=== PATIENT | male | born 1985 | race Caucasian/White ===

== ENCOUNTER 2020-01-03 09:02 | Emergency (ER) | payer OTHER ==
[2020-01-03 10:01] LABS: Absolute Lymphocytes (CBC) 2.3 K/uL (0.7-4.9); Basophils % 0.8 % (0-1.3); Hematocrit 44.5 % (39.6-49.0); Lymphocytes % 25.6 % (15.3-44.8); MPV 8.8 fL (7.6-11.3); RBC Red Blood Cell Count 5.07 M/uL (4.33-5.43)
[2020-01-03 10:05] LABS: Protime INR 1.01
[2020-01-03 10:28] LABS: ALT/SGPT 55 U/L (12-78); AST/SGOT 32 U/L (15-37); Albumin 4.1 g/dL (3.4-5.0); Alkaline Phosphatase 117 U/L (45-117); BUN Blood Urea Nitrogen 13 mg/dL (7-18); Bicarbonate 27 mmol/L (21-32); Bilirubin Direct 0.1 mg/dL (0-0.2); Bilirubin Total 0.5 mg/dL (0.2-1.0); Glucose Level 98 mg/dL (74-106); Magnesium 2.3 mg/dL (1.8-2.4); NT PRO-BNP 15 pg/mL (<125); Potassium 4.2 mmol/L (3.5-5.1); Sodium Level 140 mmol/L (136-145); Troponin (Emerg Dept Use Only) < 0.02 ng/mL (0.0-0.045)
--- NOTE | 2020-01-03 10:58 | RAD REPORT ---
EXAM DESCRIPTION: RAD - Chest Single View - 01/03/2020 10:14 am CLINICAL HISTORY: DYSPNEA TECHNIQUE: AP portable chest image was obtained 01/03/2020 10:14 am . FINDINGS: Lungs are clear. Heart and vasculature are normal. No measurable pleural effusion and no p neumothorax. No acute bony abnormality seen. No acute aortic findings suspected. IMPRESSION: No acute cardiopulmonary process.
--- NOTE | 2020-01-03 11:35 | ER ---
Nurse's Notes [facility] Name: Mak Rogers Age: 34 yrs Sex: Male : 1985 Arrival Date: 01/03/2020 Time: 09:05 Bed 13 Private MD: Diagnosis: Hypertensive Urgency Presentation: 01/02 09:23 Chief complaint: Patient states: sharp/dull left sided chest pain started at 0800 iw today, lasted about 5 min, then left arm went numb, also felt like he had a lump in his throat , hx of high blood pressure. Coronavirus screen: Proceed with normal triage. Patient denies a cough. Patient denies shortness of breath or difficulty breathing. Patient denies measured and/or subjective temperature greater than 100.4F prior to today's visit. Patient denies travel on a cruise ship or to a country the [facility] currently lists as an affected area. Patient denies contact with known and/or suspected case of COVID-19. Ebola Screen: Patient negative for fever greater than or equal to 101.5 degrees Fahrenheit, and additional compatible Ebola Virus Disease symptoms Patient denies exposure to infectious person. Patient denies travel to an Ebola-affected area in the 21 days before illness onset. No symptoms or risks identified at this time. Initial Sepsis Screen: Does the patient meet any 2 criteria? No. Patient's initial sepsis screen is negative. Does the patient have a suspected source of infection? No. Patient's initial sepsis screen is negative. Risk Assessment: Do you want to hurt yourself or someone else? Patient reports no desire to harm self or others. Onset of symptoms was January 03, 2020. 09:23 Method Of Arrival: Ambulatory iw 09:23 Acuity: CAMERON 3 iw Triage Assessment: 11:00 General: Behavior is calm. iw Historical: - Allergies: 10:02 PENICILLINS; iw - Home Meds: 10:02 metoprolol tartrate 25 mg Oral tab 1 tab 2 times per day [Active]; iw - PMHx: 10:02 Hypertension; iw - PSHx: 10:02 Appendectomy; iw - Immunization history:: Adult Immunizations. - Social history:: Smoking status: Patient denies any tobacco usage or history of. Screenin:30 Abuse screen: Denies threats or abuse. Denies injuries from another. Nutritional iw screening: No deficits noted. Tuberculosis screening: No symptoms or risk factors identified. Fall Risk None identified. Assessment: 09:30 General: Appears in no apparent distress. comfortable. Pain: Complains of pain in iw anterior aspect of left upper chest and left breast Pain radiates to left arm Pain began 1 hour ago. Is intermittent. Neuro: Level of Consciousness is awake, alert, obeys commands, Oriented to person, place, Moves all extremities. Full function. Neuro: Reports numbness in left arm. Cardiovascular: Patient's skin is warm and dry. Rhythm is sinus rhythm. Respiratory: Respiratory effort is even, unlabored, Respiratory pattern is regular. Derm: Skin is intact, is healthy with good turgor. Musculoskeletal: Range of motion: intact in all extremities. 10:31 Reassessment: Patient appears in no apparent distress at this time. Patient and/or iw family updated on plan of care and expected duration. Pain level reassessed. Patient is alert, oriented x 3, equal unlabored respirations, skin warm/dry/pink. Vital Signs: 10:00 BP 142 / 99; Pulse 76; Resp 16; Temp 98.2; Pulse Ox 100% on R/A; Weight 93.44 kg; iw Height 5 ft. 10 in. (177.80 cm); Pain 6/10; 10:26 BP 122 / 86; Pulse 68; Resp 16; Pulse Ox 98% on R/A; Pain 3/10; iw 10:00 Body Mass Index 29.56 (93.44 kg, 177.80 cm) iw ED Course: 09:05 Patient arrived in ED. mr 09:06 Parrish Peña PA is PHCP. jr8 09:06 Mathew Helm MD is Attending Physician. jr8 09:06 Winnie Moran, ARLINE is Primary Nurse. iw 09:25 Triage completed. iw 10:00 Arm band placed on. iw 10:12 Initial lab(s) drawn, by ga, sent to lab. Inserted saline lock: 20 gauge in right 5 antecubital area, using aseptic technique. Blood collected. 10:13 X-ray completed. Portable x-ray completed in exam room. Patient tolerated procedure ml well. 10:13 Patient has correct armband on for positive identification. Bed in low position. Call [facility] light in reach. monitoring tech on. Pulse ox on. NIBP on. 10:14 XRAY Chest (1 view) In Process Unspecified. EDDE 10:14 Basic Metabolic Panel Sent. 5 10:14 LFT's Sent. 5 10:14 Magnesium Sent. 5 10:14 NT PRO-BNP Sent. 5 10:14 Troponin (emerg Dept Use Only) Sent. 5 10:26 Patient maintains SpO2 saturation greater than 95% on room air. iw 11:42 Repeat lab(s) drawn. by ga, sent to lab. [facility] 11:58 No provider procedures requiring assistance completed. IV discontinued, intact, No iw redness/swelling at site. Pressure dressing applied. Administered Medications: No medications were administered Outcome: 11:34 Discharge ordered by MD. oro 11:58 Discharged to home ambulatory. iw 11:58 Condition: good 11:58 Discharge instructions given to patient, Instructed on discharge instructions, follow up and referral plans. Demonstrated understanding of instructions, follow-up care. 11:59 Patient left the ED. Signatures: Dispatcher [employer] Mei Mays Irene, RN RN Manuela Palencia Josh, PA PA Lela Cabrera [facility]
--- NOTE | 2020-01-03 11:35 | EDPHYS ---
Physician Documentation [facility] Name: Mak Rogers Age: 34 yrs Sex: Male : 1985 Arrival Date: 01/03/2020 Time: 09:05 Bed 13 Private MD: ED Physician Mathew Helm HPI: 01/02 09:27 This 34 yrs old Male presents to ER via Ambulatory with complaints of Chest jr8 Pain, Arm Problem. 09:27 The patient or guardian reports chest pain that is located primarily in the substernal jr8 area. The pain radiates to the left arm, jaw. Associated signs and symptoms: The patient has no apparent associated signs or symptoms. The chest pain is described as a heaviness, a pressure. Duration: The patient or guardian reports a single episode, that lasted 1 hour(s). Modifying factors: The symptoms are alleviated by nothing. the symptoms are aggravated by nothing. Severity of pain: At its worst the pain was moderate in the emergency department the pain has improved moderately. The patient has not experienced similar symptoms in the past. The patient has not recently seen a physician. Patient stated that he will get palpitations from time to time when his blood pressure spikes. Today had chest pressure with radiation to arm and jaw which is abnormal for him. Historical: - Allergies: 10:02 PENICILLINS; iw - Home Meds: 10:02 metoprolol tartrate 25 mg Oral tab 1 tab 2 times per day [Active]; iw - PMHx: 10:02 Hypertension; iw - PSHx: 10:02 Appendectomy; iw - Immunization history:: Adult Immunizations. - Social history:: Smoking status: Patient denies any tobacco usage or history of. ROS: 09:27 Eyes: Negative for injury, pain, redness, and discharge, ENT: Negative for injury, jr8 pain, and discharge, Neck: Negative for injury, pain, and swelling, Respiratory: Negative for shortness of breath, cough, wheezing, and pleuritic chest pain, Abdomen/GI: Negative for abdominal pain, nausea, vomiting, diarrhea, and constipation, Back: Negative for injury and pain, MS/Extremity: Negative for injury and deformity, Skin: Negative for injury, rash, and discoloration, Neuro: Negative for headache, weakness, numbness, tingling, and seizure. 09:27 Cardiovascular: Positive for chest pain, Negative for edema, orthopnea, palpitations, paroxysmal nocturnal dyspnea. Exam: 09:27 Eyes: Pupils equal round and reactive to light, extra-ocular motions intact. Lids and jr8 lashes normal. Conjunctiva and sclera are non-icteric and not injected. Cornea within normal limits. Periorbital areas with no swelling, redness, or edema. ENT: Nares patent. No nasal discharge, no septal abnormalities noted. Tympanic membranes are normal and external auditory canals are clear. Oropharynx with no redness, swelling, or masses, exudates, or evidence of obstruction, uvula midline. Mucous membranes moist. Neck: Trachea midline, no thyromegaly or masses palpated, and no cervical lymphadenopathy. Supple, full range of motion without nuchal rigidity, or vertebral point tenderness. No Meningismus. Cardiovascular: Regular rate and rhythm with a normal S1 and S2. No gallops, murmurs, or rubs. Normal PMI, no JVD. No pulse deficits. Respiratory: Lungs have equal breath sounds bilaterally, clear to auscultation and percussion. No rales, rhonchi or wheezes noted. No increased work of breathing, no retractions or nasal flaring. Abdomen/GI: Soft, non-tender, with normal bowel sounds. No distension or tympany. No guarding or rebound. No evidence of tenderness throughout. Back: No spinal tenderness. No costovertebral tenderness. Full range of motion. Skin: Warm, dry with normal turgor. Normal color with no rashes, no lesions, and no evidence of cellulitis. MS/ Extremity: Pulses equal, no cyanosis. Neurovascular intact. Full, normal range of motion. Neuro: Awake and alert, GCS 15, oriented to person, place, time, and situation. Cranial nerves II-XII grossly intact. Motor strength 5/5 in all extremities. Sensory grossly intact. Cerebellar exam normal. Normal gait. 10:36 ECG was reviewed by the Attending Physician. [facility] Vital Signs: 10:00 BP 142 / 99; Pulse 76; Resp 16; Temp 98.2; Pulse Ox 100% on R/A; Weight 93.44 kg; iw Height 5 ft. 10 in. (177.80 cm); Pain 6/10; 10:26 BP 122 / 86; Pulse 68; Resp 16; Pulse Ox 98% on R/A; Pain 3/10; iw 10:00 Body Mass Index 29.56 (93.44 kg, 177.80 cm) iw MDM: 09:10 Patient medically screened. niru 11:33 Data reviewed: vital signs, nurses notes, lab test result(s), EKG, radiologic studies, jr8 plain films. Data interpreted: Pulse oximetry: on room air is 98 %. Interpretation: normal. Counseling: I had a detailed discussion with the patient and/or guardian regarding: the historical points, exam findings, and any diagnostic results supporting the discharge/admit diagnosis, lab results, radiology results, the need for outpatient follow up, a family practitioner, to return to the emergency department if symptoms worsen or persist or if there are any questions or concerns that arise at home. Response to treatment: the patient's symptoms have resolved after treatment. 11:34 ED course: Patient resolved after BP normalized. Most likely HTN urgency that caused jr8 symptoms. ECG and troponin x 2 normal. Will having him f/u with PCP. If worse knows to come back . 01/02 09:24 Order name: Basic Metabolic Panel; Complete Time: 10:01/02 09:24 Order name: CBC with Diff; Complete Time: 10:01/02 09:24 Order name: LFT's; Complete Time: 01/02 09:24 Order name: Magnesium; Complete Time: :01/02 09:24 Order name: NT PRO-BNP; Complete Time: :01/02 09:24 Order name: PT-INR; Complete Time: 10:01/02 09:24 Order name: Troponin (emerg Dept Use Only); Complete Time: 10:01/02 09:24 Order name: XRAY Chest (1 view); Complete Time: 11:01/02 09:24 Order name: Cardiac monitoring; Complete Time: 10:01/02 09:24 Order name: EKG - Nurse/Tech; Complete Time: 10:01/02 09:24 Order name: IV Saline Lock; Complete Time: 10:01/02 09:24 Order name: Labs collected and sent; Complete Time: 10:01/02 09:24 Order name: O2 Per Protocol; Complete Time: 10:05 8 01/02 10:53 Order name: Troponin (emerg Dept Use Only); Complete Time: 11:33 8 01/02 09:24 Order name: O2 Sat Monitoring; Complete Time: 10:06 EC:36 Rate is 78 beats/min. Rhythm is regular, Sinus Rhythm. QRS [place] is Normal. MT interval jr8 is normal at 154 msec. QRS interval is normal at 82 msec. QT interval is normal at 424 msec. No Q waves. T waves are Normal. No ST changes noted. Clinical impression: Normal ECG. Interpreted by me. Reviewed by me. Administered Medications: No medications were administered Disposition: 13:09 Co-signature as Attending Physician, Mathew Helm MD I agree with the assessment and niru plan of care. Disposition: 01/03/20 11:34 Discharged to Home. Impression: Hypertensive Urgency. - Condition is Stable. - Discharge Instructions: Hypertension. - Work release form, Medication Reconciliation Form, Thank You Letter, Antibiotic Education, Prescription Opioid Use form. - Follow up: Private Physician; When: 2 - 3 days; Reason: Recheck today's complaints, Continuance of care, Re-evaluation by your physician. - Problem is new. - Symptoms are resolved. Signatures: Dispatcher [employer] EDIA Mathew Helm MD MD cha Williams, Irene RN RN Parrish Vaughn PA PA jr8 Corrections: (The following items were deleted from the chart) 11:59 11:34 01/03/2020 11:34 Discharged to Home. Impression: Hypertensive Urgency. Condition iw is Stable. Forms are Medication Reconciliation Form, Thank You Letter, Antibiotic Education, Prescription Opioid Use. Follow up: Private Physician; When: 2 - 3 days; Reason: Recheck today's complaints, Continuance of care, Re-evaluation by your physician. Problem is new. Symptoms are resolved. jr8
[2020-01-03 12:04] VITALS: TEMP 98.2
[2020-01-03 12:06] VITALS: BP 122/86; O2SAT 98
== END 2020-01-03 11:59 | disposition home or self-care (01) ==
LOC: ER 09:02
DX: I16.0 Hypertensive urgency (principal); Z88.0 Allergy status to penicillin
CPT/HCPCS: 36415; 71045; 80048; 80076; 83735; 83880; 84484; 85025; 85610; 93005; 99285

== ENCOUNTER 2021-06-21 19:25 | Emergency (ER) | payer OTHER ==
--- OUTSIDE RECORDS SUMMARY | 2021-06-21 19:30 | XMS REPORT | Continuity of Care Document ---
:[address] [facility] t Address [address] [place] [address] Care Team Providers Name Role Phone EUGENIE Primary Care Physician Unavailable GEOFFREY Attending Clinician Unavailable Geoffrey PERRY Attending Clinician Singer REECE Attending Clinician Lab, Fam Pob I Attending Clinician Unavailable Anene [employer] Attending Clinician DELTANE Attending Clinician Unavailable TIESHA Attending Clinician Unavailable Only, Test Attending Clinician Unavailable Teisha PERRY Attending Clinician Doctor Unassigned, Name Attending Clinician Unavailable Pcp, Does Not Have A Attending Clinician ANUJ, A Attending Clinician Unavailable Yanelis Abraham Attending Clinician Payers Payer Name Policy Type Policy Number Effective Date Expiration Date S [facility] [id number] 2019 PPO/POS 00:00:00 Problems Condition Condition Condition Status Onset Resolution Last Treating Co mments Source Name Details Category Date Date Treatment Clinician Date No known No known Disease Unive rs active active ity of problems problems [facility] Allergies, Adverse Reactions, Alerts Allergy Allergy Status Severity Reaction(s) Onset Inactive Treating Comm ents Source Name Type Date Date Clinician PENICILL DRUG Active SOB Univers IN INGREDI 7-27 ity of 00:00: [place] [facility] Penicill Propensi Active Shortness of Univers in ty to Breath 7-27 ity of adverse 00:00: [place] reaction [facility] MUSHROOM DRUG Active Swelling Univer s INGREDI 4-07 ity of 00:00: [place] 00 Medical Branch Mushroom Propensi Active Swelling Throat Univ ers ty to 07 swelling ity of adverse 00:00: [place] reaction 00 Medical s Branch NO KNOWN Drug Active Univers ALLERGIE Class ity of S [facility] Social History Social Habit Start Date Stop Date Quantity Comments Source Exposure to Not sure [facility] SARS-CoV-2 (event) Medica l Branch Sex Ass[birth year] At [birth year] [facility] 00:00:00 00:00:00 Medical [place] Smoking Status Start Date Stop Date Source Unknown if ever smoked [facility] Medications Ordered Filled Start Stop Current Ordering Indication Dosage Frequency Signature Comments Components Source Medication Medication Date Date Medication? Clinician (SIG) Name Name NaCl 0.9% 2020-07- No 1000mL at 999 Uni vers (NS) bolus -24 11-24 mL/hr, ity of infusion 05:00: 04:51 1,000 mL, [place] 1,000 mL 00 :00 IV Medical Infusion, Branch ONCE, 1 dose, On Wed06/17/21 at 2300, ALBARO ketorolac 2020- No 15mg 15 mg, Unive rs (TORADOL) 02-18 Slow IV ity of injection 11:00: 10:59 Push, Q6H, [place] 15 mg 00 :00 4 doses, Medical First dose Branch on Wed02/18/21 at 0600, Last dose on Wed02/19/21 at 0000, Routine NaCl 0.9% 2020- No 1000mL at 999 Uni vers (NS) bolus 02-18 mL/hr, ity of infusion 08:45: 09:15 1,000 mL, [place] 1,000 mL 00 :00 IV Medical Piggyback, Branch ONCE, 1 dose, Wed02/18/21 at 0345, STAT ondansetron 2020- No 4mg 4 mg, Slow Univers (ZOFRAN 02-18 IV Push, ity of (PF)) 07:45: 08:06 ONCE, 1 [place] injection 4 00 :00 dose, Tue Med ical mg 02/18/21 at Branch 0245, Routine famotidine 2020- No 20mg 20 mg, Univ ers (PEPCID 10-30 Slow IV ity of (PF)) 13:15: 12:21 Push, [place] injection 00 :00 ONCE, 1 Medical 20 mg dose, Wed Branch 10/30/20 at 0815, ALBARO methylpredn 2020- No 125mg 125 mg, IV Univers isolone sod 10-30 Piggyback, i ty of succ 13:15: 12:21 ONCE, 1 [place] (SOLU-MEDRO 00 :00 dose, Wed Med ical L) 10/30/20 at Branch injection 0815, STAT 125 mg predniSONE Yes [id number] 20mg Take 1 Univers 20 mg - tablet by ity of tablet 00:00: mouth [place] 00 daily. [facility] predniSONE Yes [id number] 20mg Take 1 Univers 20 mg - tablet by ity of tablet 00:00: mouth [place] 00 daily. [facility] predniSONE Yes [id number] 20mg Take 1 Univers 20 mg - tablet by ity of tablet 00:00: mouth [place] 00 daily. [facility] Branch EPINEPHrine 2020- No [id number] .3mg 0.[address] [facility] (EPIPEN) 10-30 Intramuscu ity of 0.3 mg/0.3 00:00: 04:59 lar route [place] mL 00 :00 once now Medical injection for 1 Branch dose. Vital Signs Vital Name Observation Time Observation Value Comments Source Systolic blood 2021-06-18 06:00:00 133 [facility] Diastolic blood 2021-06-18 06:00:00 91 mm[Hg] [facility] [place] Heart rate 2021-06-18 06:00:00 69 /min [facility] Respiratory rate 2021-06-18 06:00:00 15 /min [facility] Oxygen saturation in 2021-06-18 06:00:00 98 /min [facility] Arterial blood by [facility] Pulse oximetry [place] Body temperature 2021-06-18 03:51:00 37 Carline [facility] Body height 2021-06-18 03:51:00 177.8 cm [facility] Body weight 2021-06-18 03:51:00 99.791 kg [facility] ty [facility] [place] Medical [facility] BMI 2021-06-18 03:51:00 31.57 kg/m2 Universi ty of [facility] Branch Systolic blood 2021-02-18 10:01:00 143 mm[Hg] Univer sity of pressure [facility] Diastolic blood 2021-02-18 10:01:00 98 mm[Hg] Unive rsity of pressure [facility] Heart rate 2021-02-18 10:01:00 67 /min Universi ty of [facility] Respiratory rate 2021-02-18 10:01:00 18 /min Univ ersity of [facility] Oxygen saturation in 2021-02-18 10:01:00 98 /min University of Arterial blood by [facility] Pulse oximetry Branch Body temperature 2021-02-18 07:25:00 36.5 Carline [facility] ersity of [facility] Body height 2021-02-18 07:25:00 177.8 cm Universi ty of [facility] Body weight 2021-02-18 07:25:00 95.255 kg Universi ty of [facility] BMI 2021-02-18 07:25:00 30.13 kg/m2 Universi ty of [facility] Branch Systolic blood 2020-10-30 14:10:00 140 mm[Hg] Univer sity of pressure [facility] Diastolic blood 2020-10-30 14:10:00 77 mm[Hg] Unive rsity of pressure [facility] Heart rate 2020-10-30 14:10:00 98 /min Universi ty of [facility] Respiratory rate 2020-10-30 14:10:00 18 /min Univ ersity of [facility] Oxygen saturation in 2020-10-30 14:10:00 98 /min University of Arterial blood by [facility] Pulse oximetry Branch Body temperature 2020-10-30 12:11:00 36.61 Carline [facility] ersity of [facility] Body weight 2020-10-30 12:11:00 95.255 kg Universi ty [facility] Procedures Procedure Date / Time Performing Clinician Source Performed TROPONIN I 2021-06-18 05:48:00 Magdi Hale o f [facility] URINE DRUG (IMMUNOASSAY) 2021-06-18 04:53:00 Hale, Magdi [facility] DRUG Medical [facility] [address] SCREEN NOTICE OF PRIVACY 2021-06-18 04:50:48 Doctor Unassigned, No Univ [facility] [place] PRACTICES Name Medical Branch CONSENT/REFUSAL FOR 2021-06-18 04:49:09 [facility] Unassigned, No [facility] Name Medical Branch XR CHEST 1 VW 2021-06-18 04:21:41 Magdi Hale [facility] LIPASE 2021-06-18 04:02:00 Magdi Hale [facility] TROPONIN I 2021-06-18 04:02:00 Magdi Hale [facility] COMP. METABOLIC PANEL 2021-06-18 04:02:00 Magdi Hale [facility] ([id number]) Medical [place] CBC WITH DIFF 2021-06-18 04:02:00 Magdi Hale [facility] PROTHROMBIN TIME / INR 2021-06-18 04:02:00 Magdi Hale [facility] D-DIMER 2021-06-18 04:02:00 Magdi Hale [facility] ACTIVATED PARTIAL 2021-06-18 04:02:00 [facility] TH[facility]PL[facility] ALYSON [facility] N-TERMINAL PRO-BNP 2021-06-18 04:02:00 Magdi Hale [facility] URINALYSIS 2021-02-18 08:52:[facility] 2021-02-18 07:59:20 Gaudencio Day [facility] CONTRAST Medical Branch COMP. METABOLIC PANEL 2021-02-18 07:53:00 Gaudencio Day [facility] ([id number]) Medical Branch CBC WITH DIFF 2021-02-18 07:53:00 Singer [facility] COVID-19 (ID NOW RAPID 2021-02-18 07:52:00 Gaudencio Day [facility] TESTING) Medical Branch CONSENT/REFUSAL FOR 2021-02-18 07:21:29 Doctor Unassigned, No Un [facility] [place] DIAGNOSIS AND TREATMENT Name Medical Branch NOTICE OF PRIVACY 2020-10-30 12:02:54 Doctor Unassigned, No [facility] PRACTICES Name Medical Branch CONSENT/REFUSAL FOR 2020-10-30 12:02:42 Doctor Un[facility]igned, No [facility] Name Medical Branch ASSIGNMENT OF BENEFITS 2020-07-31 15:02:00 Doctor Unassigned, No [facility] Name Medical Branch Encounters Start End Encounter Admission Attending Care Care Encounter Source Date/Time Date/Time Type Type Clinicians Facility Department ID 2021-05-26 Emergency [facility] [id number] Univers 10:59:02 ity [facility] 2021-05-25 Emergency [facility] [id number] Univers 11:12:02 ity [facility] 2021-06-17 2021-06-18 Emergency [id number] Univers 21:43:00 01:00:00 MAGDI darancho [facility] 2021-06-17 2021-06-18 [facility] [id number] Univers 21:43:00 01:00:00 Magdi SAMANIEGO [id number] i ty of [facility] 4.2.7.2.686 [facility] [id number] [address] 2021-02-18 2021-02-18 [facility] [id number] Univers 02:38:00 05:10:00 Gaudencio Samaniego 350.1.13.10 i ty of [place] 4.2.7.2.686 [facility] [id number] [address] 2020-10-30 2020-10-30 [facility] [id number] Univers 07:05:00 10:02:00 Magdi Aden 350.1.13.10 i ty of [place] 4.2.7.2.686 [facility] [id number] [address] 2020-08-16 2020-08-16 Laboratory Lab, Adc Fam Pob I [facility] 1.2. [id number] [id number] Univers 11:18:19 11:38:19 Only Lyndsey Marley 350.1.13.10 ity of [place] 4.2.7.2.686 [place] as Professio [id number] La dical nal [address] Branch [address] 2020-08-16 2020-08-16 Outpatient R [facility] [id number] Univers 11:20:00 11:20:00 [id number] ity of [facility] 2020-08-16 2020-08-16 [facility] [id number] Univers 11:20:00 11:20:00 LYNDSEY ity [facility] 2020-07-31 2020-07-31 Outpatient R [facility] [id number] Univers 09:30:00 09:30:00 [id number] ity [facility] 2020-07-31 2020-07-31 [facility] [id number] Univers 09:30:00 09:30:00 LUNA frazier [facility] 2020-07-31 2020-07-31 Laboratory Only, Adc Test [facility] [id number] Univers 08:58:06 09:13:06 Only Luna Mahan 350.1.13.10 ity of [place] 4.2.7.2.686 [place] [facility] [id number] [facility] [address] [place] 2020-07-31 2020-07-31 Orders Doctor DEMARCO [id number] Univers 00:00:00 00:00:00 Only Unassigned, JOB 350.1.13.10 ity of [place] [facility] 4.2.7.2.686 [place]igo as [id number] [facility] [address] [place] 2020-04-19 2020-04-19 Telephone Pcp, DEMARCO [id number] Univers 00:00:00 00:00:00 Patient JOB 350.1.13.10 it y of Does Not HOSPITAL 4[place]2.7.2.686 [place] Have A [id number] [facility] 019 [place] 2020-04-18 2020-04-18 Outpatient R [facility] [id number] Univers 09:00:00 09:00:00 [id number] ity [facility] 2020-04-18 2020-04-18 Outpatient [facility] [id number] Univers 09:00:00 09:00:00 LYNDSEY itrancho [facility] 2020-04-18 2020-04-18 Laboratory Lab, [facility] 1.2. [id number] Univers 08:06:23 08:26:23 Only Lyndsey [facility] 350.1.13.10 ity of [place] 4.2.7.2.686 [place] Professio [id number] [address] Office [facility] 2020-03-06 2020-03-06 Outpatient [facility] [id number] Univers 14:00:00 14:00:00 VIKTORIYA itrancho [facility] 2020-03-06 2020-03-06 Laboratory Lab, [facility] 1.2. [id number] [id number] Univers 13:44:04 13:58:31 Only Viktoriya [facility] 350.1.13.10 ity of [place] 4.2.7.2.686 [place] Professio [id number] [address] Office [facility] 2020-03-06 2020-03-06 Letter Doctor DEMARCO [id number] Univers 00:00:00 00:00:00 (Out) Unassigned, JOB 350.1.13.10 ity of [place] [facility] 4.2.7.2.686 [place] as [id number] [address] Results Test Description Test Time Test Comments Results Result Comments Source TROPONIN I 2021-06-18 06:28:00 Test Item Value Reference Range Interpretation Comme nts TROPONIN I (test code = 0.004 ng/mL See_Comment [Au tomated message] The [id number]) system which ge nerated this result tra nsmitted reference range : <=0.034. The reference r ray was not used to int erpret this result as normal/abnormal . FLAVIO (test code = FLAVIO) Reference (Normal) Range (defined by the 99th percentile reference limit): <= 0.034 ng/mL Note: Cardiac troponin begins to rise 3-4 hours after the onset of ischemia. Repeat in 4-6 hours if the sample was drawn within 3-4 hours of the onset of the symptom and found normal. Diagnosis of myocardial injury is made with acute changes in cTn concentrations with at least one serial sample above the 99th percentile upper reference limit (URL), taken together with the patient's clinical presentation. Biotin has been reported to cause a negative bias, interpret results relative to patient's use of biotin. Lab Interpretation Normal (test code = 48543-2) [id number] 05:02:48 Test Item Value Reference Interpretation Comments Range D-DIMER (test code = <0.27 See_Comment [Autom ated [id number]) message] The system which generated this result transmitted reference range : <0.41 ?g/mL (FEU). The reference range was not used to interpret this result as normal/abnormal . FLAVIO (test code = This test may be FLAVIO) used in conjunction with a clinical pretest probability (PTP) assessment model to exclude venous thromboembolism (VTE) in patients suspected of deep venous thrombosis (DVT) and pulmonary embolism (PE) A D-Dimer value less than 0.50 ?g/ml (FEU) has a negative predicative value of 96 to 100% (95% CI)and 97 to 100% (95% CI) as an aid in the diagnosis of deep vein thrombosis (DVT) and pulmonary embolism when there is low or moderate pretest probability of PE or DVT. D-Dimer values are expressed in initial fibrinogen equivalent units (FEU)" The assay results should be used with other information, including the clinical context, in forming a diagnosis. Lab Interpretation Normal (test code = 43427-0) [facility] [id number] 04:35:43 Test Item Value Reference Interpretation Comments Range TROPONIN I (test 0.002 ng/mL See_Comment [Automated code = 6391182512) message] The system which generated this result transmitted reference range : <=0.034. The reference range was not used to interpret this result as normal/abnormal . FLAVIO (test code = Reference (Normal) FLAVIO) Range (defined by the 99th percentile reference limit): <= 0.034 ng/mL Note: Cardiac troponin begins to rise 3-4 hours after the onset of ischemia. Repeat in 4-6 hours if the sample was drawn within 3-4 hours of the onset of the symptom and found normal. Diagnosis of myocardial injury is made with acute changes in cTn concentrations with at least one serial sample above the 99th percentile upper reference limit (URL), taken together with the patient's clinical presentation. Biotin has been reported to cause a negative bias, interpret results relative to patient's use of biotin. Lab Interpretation Normal (test code = 18560-0) [facility] [id number] 04:32:40 Test Item Value Reference Range Interpretation Comments NT-proBNP (test code 23 pg/mL See_Comment [Autom ated = 7239897417) message] The system which generated this result transmitted reference range : <=125. The reference range was not used to interpret this result as normal/abnormal . FLAVIO (test code = FLAVIO) Biotin has been reported to cause a negative bias, interpret results relative to patient's use of biotin. Lab Interpretation Normal (test code = 40069-6) [facility] THRMPLAS [id number] 04:27:23 Test Item Value Reference Range Interpretation Comments APTT Patient (test See_Comment [Automat ed code = 3173-2) message] The system which generated this result transmitted reference range : 23 - 38 Seconds . The reference range was not used to interpr et this result as normal/abnormal . FLAVIO (test code = FLAVIO) The [facility] patient population mean normal value for aPTT is 30 seconds. Lab Interpretation Normal (test code = 40416-8) [facility]HROM[facility] TIME / [id number] 04:25:21 Test Item Value Reference Range Interpretation Comments PROTIME PATIENT (test See_Comment [Auto mated message] code = 5964-2) The system wh ich generated this result transmitted ref erence range: 12.0 - 1 4.7 Seconds. The re ference range was not u sed to interpret this result as normal/abnor mal. INR (test code = 6301-6) Nor mal INR <1.1; Warfarin Therap eutic range 2.0 to 3. 0 or 2.5 to 3.5, dep ending upon the indica tions. Lab Interpretation (test Normal code = 66028-3) [facility]. METABOLIC PANEL (23095)2021-06-18 04:25:01 Test Item Value Reference Range Interpretation Comments NA (test code = 138 mmol/L 135-145 7036512893) K (test code = 3.5 mmol/L 3.5-5.0 4311507760) CL (test code = 103 mmol/L 98-108 9686804287) CO2 TOTAL (test code = 26 mmol/L 23-31 4924350104) AGAP (test code = 2-16 1503133516) BUN (test code = 16 mg/dL 7-23 3831126607) GLUCOSE (test code = 130 mg/dL 70-110 H 4189518287) CREATININE (test code = 1.21 mg/dL 0.60-1.25 3843809957) TOTAL BILI (test code = 0.4 mg/dL 0.1-1.3 4933401051) CALCIUM (test code = 8.9 mg/dL 8.6-10.6 6799301448) T PROTEIN (test code = 7.2 g/dL 6.3-8.2 1833861335) ALBUMIN (test code = 4.2 g/dL 3.5-5.0 5235728554) ALK PHOS (test code = 97 U/L 34-122 5871071108) ALTv (test code = 48 U/L 5-50 1742-6) AST(SGOT) (test code = 44 U/L 13-40 H 5779975031) eGFR (test code = mL/min/1.73m2 6851255673) FLAVIO (test code = FLAVIO) Association of Glomerular Filtration Rate (GFR) and Staging of Kidney Disease* + --+ --+ ------+| GFR (mL/min/1.73 m2) ?| With Kidney Damage ?| ?Without Kidney Damage+ --------+ --------+ +| ?>90 ?| ?Stage one ?| ? Normal ?+ ---+ ---+ -------+| ?60-89 ?| ?Stage two ?| ? Decreased GFR ? + --+ --+ ------+| ?30-59 ?| ?Stage three ?| ? Stage three ? + --+ --+ ------+| ?15-29 ?| ?Stage four ? | ? Stage four ?+ ---+ ---+ -------+| ?<15 (or dialysis) ? ?| ?Stage five ? | ? Stage five ?+ ---+ ---+ -------+ *Each stage assumes the associated GFR level has been in effect for at least three months. ?Stages 1 to 5, with or without kidney disease, indicate chronic kidney disease. Notes: Determination of stages one and two (with eGFR >59mL/min/1.73 m2) requires estimation of kidney damage for at least three months as defined by structural or functional abnormalities of the kidney, manifested by either:Pathological abnormalities or Markers of kidney damage (including abnormalities in the composition of the blood or urine or abnormalities in imaging tests). Lab Interpretation Abnormal (test code = 46403-0) [facility]IPASE2021-11-24 04:24:41 Test Item Value Reference Range Interpretation Comments LIPASE (test code = 9486184779) 85 U/L 0-220 Lab Interpretation (test code = Normal 52475-4) [facility] WITH [id number] 04:11:22 Test Item Value Reference Range Interpretation Comments WBC (test code = See_Comment H [Automated 5290-2) message] The sy stem which generated this result transmitted reference range : 4.20 - 10.70 10*3/?L. The reference range was not used to interpret this result as normal/abnormal . RBC (test code = See_Comment [Automated 765-8) message] The sy stem which generated this result transmitted reference range : 4.26 - 5.52 10*6/?L. The reference range was not used to interpret this result as normal/abnormal . HGB (test code = 13.8 g/dL 12.2-16.4 718-7) HCT (test code = 39.7 % 38.4-49.3 4544-3) MCV (test code = 86.3 fL 81.7-95.6 787-2) MCH (test code = 30.0 pg 26.1-32.7 785-6) MCHC (test code = 34.8 g/dL 31.2-35.0 786-4) RDW-SD (test code = 40.5 fL 38.5-51.6 29937-0) RDW-CV (test code = 12.8 % 12.1-15.4 788-0) PLT (test code = See_Comment [Automated 397-3) message] The sy stem which generated this result transmitted reference range : 150 - 328 10*3/ ?L. The reference r ray was not used to interpret this result as normal/abnormal . MPV (test code = 10.0 fL 9.8-13.0 09272-5) NRBC/100 WBC (test See_Comment [Automat ed code = 9863701068) message] The system which generated this result transmitted reference range : 0.0 - 10.0 /100 WBCs. The refer ence range was not u sed to interpret th is result as normal/abnormal . NRBC x10^3 (test code <0.01 See_Comment [Auto mated = 3281511488) message] The s ystem which generated this result transmitted reference range : 10*3/?L. The reference range was not used to interpret this result as normal/abnormal . GRAN MAT (NEUT) % 51.3 % (test code = 770-8) IMM GRAN % (test code 0.50 % = 5343200914) LYMPH % (test code = 34.9 % 736-9) MONO % (test code = 11.2 % 5905-5) EOS % (test code = 1.3 % 713-8) BASO % (test code = 0.8 % 706-2) GRAN MAT x10^3(ANC) 5.70 10*3/uL 1.99-6.95 (test code = 4583608850) IMM GRAN x10^3 (test 0.06 10*3/uL 0.00-0.06 code = 9923436783) LYMPH x10^3 (test code 3.88 10*3/uL 1.09-3.23 H = 731-0) MONO x10^3 (test code 1.25 10*3/uL 0.36-1.02 H = 742-7) EOS x10^3 (test code = 0.14 10*3/uL 0.06-0.53 711-2) BASO x10^3 (test code 0.09 10*3/uL 0.01-0.09 = 704-7) Lab Interpretation Abnormal (test code = 38796-6) [facility]2021-07-27 09:11:53 Test Item Value Reference Range Interpretation Comments APPEARANCE (test code Clear Clear = 3791118904) COLOR (test code = Yellow Yellow 8732047943) PH (test code = 4.8-8.0 7004633145) SP GRAVITY (test code 1.003-1.030 = 4489453621) GLU U QUAL (test code Normal Normal = 3190591349) BLOOD (test code = Negative Negative 4243100407) KETONES (test code = Negative Negative 9707375431) PROTEIN (test code = Negative Negative 2887-8) UROBILIN (test code = Normal Normal 9669964835) BILIRUBIN (test code = Negative Negative 6296149019) NITRITE (test code = Negative Negative 6722334931) LEUK BEHZAD (test code Negative Negative = 7559692876) RBC/HPF (test code = See_Comment [Autom ated message] 8584355080) The system [employer] generated this result transmitted ref erence range: 0 - 3 HP F. The reference range was not used to interpr et this result as normal/abnormal . WBC/HPF (test code = <1 See_Comment [Autom ated message] 6157470433) The system [employer] generated this result transmitted ref erence range: 0 - 5 HP F. The reference range was not used to interpr et this result as normal/abnormal . BACTERIA (test code = Negative Negative [id number]) SQ EPITH (test code = <1 HPF [id number]) [facility]APID TESTING[facility]2021-02-18 08:38:11 Test Item Value Reference Range Interpretation Comments SARS-CoV-2 Rapid ID NOW Not Detected Not Detected (test code = 02484-8) FLAVIO (test code = FLAVIO) ID NOW COVID-19 Assay is an isothermal nucleic acid amplification test intended for the qualitative detection of nucleic acid from SARS-CoV-2 viral RNA in nasopharyngeal (PAPER TWISTER) specimens. It is used under Emergency Use Authorization (EUA) by FDA. The limit of detection (LOD) of the assay is 125 Genome Equivalents/mL. A positive result is indicative of the presence of SARS-CoV-2 RNA. ?Clinical correlation with patient history and other diagnostic information is necessary to determine patient infection status. A negative (Not Detected) result does not preclude SARS-CoV-2 infection. In patients with clinical symptoms and other tests that are consistent with SARS-CoV-2 infection, negative results should be treated as presumptive negative and a new specimen should be tested with alternative PCR molecular test. Invalid: Please collect a new specimen for repeat patient testing if clinically indicated. Lab Interpretation Normal (test code = 05883-0) [facility]. METABOLIC PANEL ([id number])2021-02-18 08:37:51 Test Item Value Reference Range Interpretation Comments NA (test code = 140 mmol/L 135-145 7342801990) K (test code = 3.5 mmol/L 3.5-5.0 3903409887) CL (test code = 105 mmol/L 98-108 3036830997) CO2 TOTAL (test code = 25 mmol/L 23-31 2752943759) AGAP (test code = 2-16 3802251315) BUN (test code = 14 mg/dL 7-23 5752401301) GLUCOSE (test code = 120 mg/dL 70-110 H 7251080660) CREATININE (test code = 1.05 mg/dL 0.60-1.25 1572359115) TOTAL BILI (test code = 0.6 mg/dL 0.1-1.5 8696835363) CALCIUM (test code = 9.3 mg/dL 8.6-10.6 3968566134) T PROTEIN (test code = 7.8 g/dL 6.3-8.2 8757749703) ALBUMIN (test code = 4.6 g/dL 3.5-5.0 4966083092) ALK PHOS (test code = 95 U/L 34-122 6919436968) ALTv (test code = 51 U/L 5-50 H 1742-6) AST(SGOT) (test code = 41 U/L 13-40 H 0006720616) eGFR (test code = mL/min/1.73m2 3614490558) FLAVIO (test code = FLAVIO) Association of Glomerular Filtration Rate (GFR) and Staging of Kidney Disease* + --+ --+ ------+| GFR (mL/min/1.73 m2) ?| With Kidney Damage ?| ?Without Kidney Damage+ --------+ --------+ +| ?>90 ?| ?Stage one ?| ? Normal ?+ ---+ ---+ -------+| ?60-89 ?| ?Stage two ?| ? Decreased GFR ? + --+ --+ ------+| ?30-59 ?| ?Stage three ?| ? Stage three ? + --+ --+ ------+| ?15-29 ?| ?Stage four ? | ? Stage four ?+ ---+ ---+ -------+| ?<15 (or dialysis) ? ?| ?Stage five ? | ? Stage five ?+ ---+ ---+ -------+ *Each stage assumes the associated GFR level has been in effect for at least three months. ?Stages 1 to 5, with or without kidney disease, indicate chronic kidney disease. Notes: Determination of stages one and two (with eGFR >59mL/min/1.73 m2) requires estimation of kidney damage for at least three months as defined by structural or functional abnormalities of the kidney, manifested by either:Pathological abnormalities or Markers of kidney damage (including abnormalities in the composition of the blood or urine or abnormalities in imaging tests). Lab Interpretation Abnormal (test code = 30517-3) [facility] WITH [id number] 08:24:25 Test Item Value Reference Range Interpretation Comments WBC (test code = See_Comment [Automated 2806-2) message] The sy stem which generated this result transmitted reference range : 4.20 - 10.70 10*3/?L. The reference range was not used to interpret this result as normal/abnormal . RBC (test code = See_Comment [Automated 329-8) message] The sy stem which generated this result transmitted reference range : 4.26 - 5.52 10*6/?L. The reference range was not used to interpret this result as normal/abnormal . HGB (test code = 14.9 g/dL 12.2-16.4 718-7) HCT (test code = 43.3 % 38.4-49.3 4544-3) MCV (test code = 86.3 fL 81.7-95.6 787-2) MCH (test code = 29.7 pg 26.1-32.7 785-6) MCHC (test code = 34.4 g/dL 31.2-35.0 786-4) RDW-SD (test code = 40.8 fL 38.5-51.6 42500-9) RDW-CV (test code = 13.0 % 12.1-15.4 788-0) PLT (test code = See_Comment H [Automated 777-3) message] The sy stem which generated this result transmitted reference range : 150 - 328 10*3/ ?L. The reference r ray was not used to interpret this result as normal/abnormal . MPV (test code = 10.3 fL 9.8-13.0 58805-1) NRBC/100 WBC (test See_Comment [Automat ed code = 7595937565) message] The system which generated this result transmitted reference range : 0.0 - 10.0 /100 WBCs. The refer ence range was not u sed to interpret th is result as normal/abnormal . NRBC x10^3 (test code <0.01 See_Comment [Auto mated = [id number]) message] The s ystem which generated this result transmitted reference range : 10*3/?L. The reference range was not used to interpret this result as normal/abnormal . GRAN MAT (NEUT) % 44.2 % (test code = 770-8) IMM GRAN % (test code 0.60 % = 4033008168) LYMPH % (test code = 39.6 % 736-9) MONO % (test code = 12.6 % 5905-5) EOS % (test code = 2.1 % 713-8) BASO % (test code = 0.9 % 706-2) GRAN MAT x10^3(ANC) 4.33 10*3/uL 1.99-6.95 (test code = 7451630414) IMM GRAN x10^3 (test 0.06 10*3/uL 0.00-0.06 code = 9190167311) LYMPH x10^3 (test code 3.89 10*3/uL 1.09-3.23 H = 731-0) MONO x10^3 (test code 1.24 10*3/uL 0.36-1.02 H = 742-7) EOS x10^3 (test code = 0.21 10*3/uL 0.06-0.53 711-2) BASO x10^3 (test code 0.09 10*3/uL 0.01-0.09 = 704-7) Lab Interpretation Abnormal (test code = 24801-1) [facility]
[2021-06-21] MEDS ORDERED: ASPIRIN 81 MG CHEWABLE TABLET ONE (21:44)
[2021-06-21] MEDS ORDERED: LORazepam 2 MG/ML VIAL ONE (21:44)
[2021-06-21] MEDS ORDERED: NA CHLORIDE 0.9% 1,000 ML ONE (21:44)
[2021-06-21 22:15] LABS: Absolute Lymphocytes (CBC) 3.1 K/uL (0.7-4.9); Basophils % 0.8 % (0-1.3); Hematocrit 44.9 % (39.6-49.0); Lymphocytes % 24.8 % (15.3-44.8); MPV 8.4 fL (7.6-11.3); RBC Red Blood Cell Count 5.07 M/uL (4.33-5.43)
--- NOTE | 2021-06-21 22:23 | RAD REPORT ---
EXAM DESCRIPTION: RAD - Chest Single View - 06/21/2021 10:05 pm CLINICAL HISTORY: SOB COMPARISON: Chest Single View dated 01/03/2020 FINDINGS: Lines: None. Lungs: No evidence of edema or pneumonia. Pleural: No significant pleural effusions or pneumothorax. Cardiac: The heart size is within normal limits. Bones: No acute fractures. Other: IMPRESSION: No acute cardiopulmonary disease.
[2021-06-21 22:25] LABS: Barbiturates NEGATIVE (NEGATIVE); Benzodiazepines NEGATIVE (NEGATIVE); Cocaine NEGATIVE (NEGATIVE); METHAMPHETAM NEGATIVE (NEGATIVE); Methadone NEGATIVE (NEGATIVE); Opiates NEGATIVE (NEGATIVE); Phencyclidine NEGATIVE (NEGATIVE); Protime INR 1.03; THC Cannibis NEGATIVE (NEGATIVE)
[2021-06-21 22:37] LABS: ALT/SGPT 57 U/L (12-78); AST/SGOT 30 U/L (15-37); Albumin 4.1 g/dL (3.4-5.0); Alkaline Phosphatase 108 U/L (45-117); BUN Blood Urea Nitrogen 13 mg/dL (7-18); Bicarbonate 27 mmol/L (21-32); Bilirubin Direct < 0.1 mg/dL (0-0.2); Bilirubin Total 0.4 mg/dL (0.2-1.0); Glucose Level 95 mg/dL (74-106); Magnesium 2.2 mg/dL (1.8-2.4); NT PRO-BNP 68 pg/mL (<125); Potassium 3.9 mmol/L (3.5-5.1); Sodium Level 143 mmol/L (136-145); Troponin (Emerg Dept Use Only) < 0.02 ng/mL (0.0-0.045)
[2021-06-21 23:40] LABS: Urine Blood Negative (Negative); Urine Glucose Negative (Negative); Urine Protein Negative (Negative); Urine Specific Gravity 1.025 (1.005-1.030); Urine pH 5.5 (5.0-7.0)
--- NOTE | 2021-06-22 01:11 | EDPHYS ---
Physician Documentation [facility] Name: Mak Rogers Age: 36 yrs Sex: Male : 1985 Arrival Date: 06/21/2021 Time: 19:28 Bed 14 Private MD: ED Physician Jad Mcgraw HPI: 06/21 21:33 This 36 yrs old Male presents to ER via Ambulatory with complaints of Shortness Of cp Breath, Dizziness, Lips Swelling. 21:33 The patient has shortness of breath with light activity. Onset: The symptoms/episode cp began/occurred gradually, 3 day(s) ago. Duration: The symptoms are intermittent. Associated signs and symptoms: Pertinent positives: dizziness, tingling of lips, fullness of throat, intermittent pain to right side abdomen and discomfort with urination, Pertinent negatives: chest pain, fever, numbness in extremities. Severity of symptoms: in the emergency department the symptoms are unchanged. Patient reports concern for elevated blood over past 3 days. History of HTN and takes daily Metoprolol. Patient reports while driving today had sudden episode of dizziness, tingling of lips and felt like he was going to pass out. Historical: - Allergies: 20:13 PENICILLINS; ss - Home Meds: 20:13 metoprolol tartrate 50 mg oral tab 1 tab 2 times per day [Active]; ss - PMHx: 20:13 Hypertension; ss - PSHx: 20:13 Appendectomy; ss - Immunization history:: Client reports having NOT received the Covid vaccine. - Social history:: Smoking status: Patient denies any tobacco usage or history of. ROS: 21:35 Constitutional: Negative for body aches, chills, fever, poor PO intake. cp 21:35 Eyes: Negative for injury, pain, redness, and discharge. cp 21:35 ENT: Positive for tingling of lips, sensation of fullness of throat, Negative for drainage from ear(s), ear pain, difficulty handling secretions. 21:35 Cardiovascular: Negative for chest pain, edema. 21:35 Respiratory: Positive for shortness of breath, Negative for cough, wheezing. 21:35 Abdomen/GI: Positive for abdominal pain, Negative for vomiting, diarrhea, constipation. 21:35 : Positive for burning with urination, Negative for penile discharge, testicular pain 21:35 Neuro: Positive for dizziness, Negative for altered mental status, headache, speech changes, syncope, weakness. 21:35 All other systems are negative. Exam: 21:40 Constitutional: The patient appears in no acute distress, alert, awake, cp non-diaphoretic, non-toxic, well developed, well nourished. 21:40 Head/Face: Normocephalic, atraumatic. cp 21:40 Eyes: Periorbital structures: appear normal, Conjunctiva: normal, no exudate, no injection, Sclera: no appreciated abnormality, Lids and lashes: appear normal, bilaterally. 21:40 ENT: External ear(s): are unremarkable, Nose: is normal, Mouth: Lips: moist, Oral mucosa: pink and intact, moist, Posterior pharynx: Airway: no evidence of obstruction, patent. 21:40 Neck: ROM/movement: is normal, is supple, without pain, no range of motions limitations. 21:40 Chest/axilla: Inspection: normal, Palpation: is normal, no crepitus, no tenderness. 21:40 Cardiovascular: Rate: normal, Rhythm: regular, Heart sounds: murmur, not appreciated, Edema: is not appreciated. 21:40 Respiratory: the patient does not display signs of respiratory distress, Respirations: normal, no use of accessory muscles, no retractions, labored breathing, is not present, Breath sounds: are clear throughout, no decreased breath sounds, no stridor, no wheezing. 21:40 Abdomen/GI: Inspection: abdomen appears normal, Palpation: abdomen is soft and non-tender, in all quadrants. 21:40 Back: pain, is absent, ROM is normal. 21:40 Skin: cellulitis, is not appreciated, no rash present. 21:40 Neuro: Orientation: to person, place \T\ time. Mentation: is normal, Cerebellar function: is grossly normal, Motor: moves all fours, strength is normal, Sensation: no obvious gross deficits. 21:52 ECG was reviewed by the Attending Physician. cp Vital Signs: 20:10 BP 168 / 115; Pulse 85; Resp 16; Temp 97.8(O); Pulse Ox 100% on R/A; Weight 99.79 kg; ss Height 5 ft. 10 in. (177.80 cm); Pain 0/10; 22:13 BP 155 / 92; Pulse 73; Resp 18; Pulse Ox 100% on R/A; Pain 0/10; df1 23:45 BP 125 / 83; Pulse 77; Resp 18; Pulse Ox 100% on R/A; Pain 0/10; df1 06/22 00:00 Temp 98.4(O); cs8 00:35 BP 126 / 87; Pulse 71; Resp 18; Pulse Ox 100% on R/A; df1 06/21 20:10 Body Mass Index 31.57 (99.79 kg, 177.80 cm) ss MDM: 06/21 21:17 Patient medically screened. cp 06/22 01:05 Data reviewed: vital signs, nurses notes, lab test result(s), EKG, radiologic studies, cp CT scan, plain films. 01:05 Test interpretation: by ED physician or midlevel provider: ECG, plain radiologic cp studies. Counseling: I had a detailed discussion with the patient and/or guardian regarding: the historical points, exam findings, and any diagnostic results supporting the discharge/admit diagnosis, the presence of at least one elevated blood pressure reading (>120/80) during this emergency department visit, lab results, radiology results, the need for outpatient follow up, for definitive care, a family practitioner, to return to the emergency department if symptoms worsen or persist or if there are any questions or concerns that arise at home. Response to treatment: the patient's symptoms have markedly improved after treatment, and as a result, I will discharge patient. ED course: VSS. Blood pressure markedly improved and patient reports symptoms improved. Will discharge to home for continued monitoring. 06/21 21:28 Order name: Basic Metabolic Panel 06/21 21:28 Order name: CBC with Diff cp 06/21 21:28 Order name: LFT's cp 06/21 21:28 Order name: Magnesium; Complete Time: 23:27 cp 06/21 21:28 Order name: NT PRO-BNP; Complete Time: 23: cp 06/21 21: Order name: PT-INR; Complete Time: : cp 06/21 21: Order name: Troponin (emerg Dept Use Only); Complete Time: 23:27 cp 06/21 21: Order name: XRAY Chest (1 view); Complete Time: : cp 06/21 21: Order name: UDS; Complete Time: 23: cp 06/21 23:28 Interpretation: Reviewed. 06/21 21:29 Order name: D-Dimer; Complete Time: 23:27 cp 06/21 23:28 Interpretation: Reviewed. 06/21 21:29 Order name: Basic Metabolic Panel; Complete Time: 23:27 EDMS 06/21 23:27 Interpretation: Normal except: GFR 68. 06/21 21:29 Order name: CBC with Automated Diff; Complete Time: 23:27 EDMS 06/21 23:27 Interpretation: Normal except: WBC 12.60; NEUT A 8.4. 06/21 21:29 Order name: Liver (Hepatic) Function; Complete Time: 23:27 EDMS 06/21 23:27 Interpretation: Normal except: GLOB 3.9. 06/21 23:40 Order name: Urine Dipstick-Ancillary EDND 06/21 21:28 Order name: EKG; Complete Time: 21:30 06/21 21:28 Order name: Cardiac monitoring; Complete Time: 22:12 06/21 21:28 Order name: EKG - Nurse/Tech; Complete Time: 21:50 06/21 21:28 Order name: IV Saline Lock; Complete Time: 22:12 06/21 21:28 Order name: Labs collected and sent; Complete Time: 22:13 06/21 21:28 Order name: O2 Per Protocol; Complete Time: 22:13 06/21 21:28 Order name: O2 Sat Monitoring; Complete Time: 22:13 06/21 23:32 Order name: CT Head Brain wo Cont 06/21 23:33 Order name: Urine Dipstick-Ancillary (obtain specimen); Complete Time: 23:46 cp EC/27 21:52 Rate is 72 beats/min. Rhythm is regular. PA interval is normal. QRS interval is normal. cp QT interval is normal. T waves are Inverted in lead aVR. Interpreted by me. Reviewed by me. Administered Medications: 22:12 Drug: Ativan (LORazepam) 0.5 mg Route: IVP; Site: right antecubital; df1 06/22 00:48 Follow up: Response: Marked relief of symptoms df1 06/21 22:12 Drug: Aspirin Chewable Tablet 324 mg Route: PO; df1 06/22 00:48 Follow up: Response: No adverse reaction df1 06/21 22:12 Drug: NS 0.9% 1000 ml Route: IV; Rate: 1 bolus; Site: right antecubital; df1 06/22 00:47 Follow up: IV Status: Completed infusion; IV Intake: 1000ml df1 Disposition: 05:48 Co-signature as Attending Physician, Jad Mcgraw MD. [email or web address] Disposition Summary: 06/22/21 01:09 Discharge Ordered Location: Home cp Problem: new cp Symptoms: have improved cp Condition: Stable cp Diagnosis - Hypertensive heart disease without heart failure cp - Anxiety disorder, unspecified cp Followup: cp - With: Private Physician - When: 1 - 2 days - Reason: Recheck today's complaints Discharge Instructions: - Discharge Summary Sheet cp - Hypertension, Adult cp - How to Take Your Blood Pressure, [id number] cp - Managing Anxiety, Adult cp - Aspirin and Your Heart cp Forms: - Medication Reconciliation Form cp - Thank You Letter cp - Antibiotic Education cp - Prescription Opioid Use cp Prescriptions: - Vistaril 25 mg Oral capsule - take 1 capsule by ORAL route 3 times per day As needed for anxiety; 30 capsule; cp Refills: 0, Product Selection Permitted Signatures: Dispatcher [employer] Jayda Hanks RN RN ss Mathew Prabhakar, PA PA cp Jad Mcgraw MD MD mh Heather Bloom df1
--- NOTE | 2021-06-22 01:11 | ER ---
Nurse's Notes [facility] Name: Mak Rogers Age: 36 yrs Sex: Male : 1985 Arrival Date: 06/21/2021 Time: 19:28 Bed 14 Private MD: Diagnosis: Hypertensive heart disease without heart failure;Anxiety disorder, unspecified Presentation: 06/21 20:10 Chief complaint: Patient states: Ever since I had my blood pressure spike three days ss ago, I haven't felt right. Today I have been having episodes where I feel out of breath, dizzy and I just don't feel right. I have a pain in my right side and burning with urination that began today. Coronavirus screen: Client denies travel out of the [place] in the last 14 days. Ebola Screen: Patient denies exposure to infectious person. Patient denies travel to an Ebola-affected area in the 21 days before illness onset. Initial Sepsis Screen: Does the patient meet any 2 criteria? No. Patient's initial sepsis screen is negative. Does the patient have a suspected source of infection? No. Patient's initial sepsis screen is negative. Risk Assessment: Do you want to hurt yourself or someone else? Patient reports no desire to harm self or others. Onset of symptoms was June 18, 2021. 20:10 Method Of Arrival: Ambulatory ss 20:10 Acuity: CAMERON 3 ss Triage Assessment: 22:15 General: Appears in no apparent distress. Behavior is calm, cooperative. Respiratory: df1 Reports shortness of breath at rest Onset: The symptoms/episode began/occurred gradually, the patient has mild shortness of breath. Historical: - Allergies: 20:13 PENICILLINS; ss - Home Meds: 20:13 metoprolol tartrate 50 mg oral tab 1 tab 2 times per day [Active]; ss - PMHx: 20:13 Hypertension; ss - PSHx: 20:13 Appendectomy; ss - Immunization history:: Client reports having NOT received the Covid vaccine. - Social history:: Smoking status: Patient denies any tobacco usage or history of. Screenin:14 Abuse screen: Denies threats or abuse. Nutritional screening: No deficits noted. df1 Tuberculosis screening: No symptoms or risk factors identified. Fall Risk None identified. Assessment: 22:14 Pain: Denies pain. Cardiovascular: Rhythm is regular. Respiratory: Airway is patent df1 Respiratory effort is even, unlabored, Respiratory pattern is regular, symmetrical, Breath sounds are clear bilaterally. Vital Signs: 20:10 BP 168 / 115; Pulse 85; Resp 16; Temp 97.8(O); Pulse Ox 100% on R/A; Weight 99.79 kg; ss Height 5 ft. 10 in. (177.80 cm); Pain 0/10; 22:13 BP 155 / 92; Pulse 73; Resp 18; Pulse Ox 100% on R/A; Pain 0/10; df1 23:45 BP 125 / 83; Pulse 77; Resp 18; Pulse Ox 100% on R/A; Pain 0/10; df1 06/22 00:00 Temp 98.4(O); cs8 00:35 BP 126 / 87; Pulse 71; Resp 18; Pulse Ox 100% on R/A; df1 06/21 20:10 Body Mass Index 31.57 (99.79 kg, 177.80 cm) ED Course: 06/21 19:28 Patient arrived in ED. bp1 20:13 Triage completed. ss 20:13 Arm band placed on right wrist. ss 21:16 Mathew Prabhakar PA is PHCP. cp 21:16 Jad Mcgraw MD is Attending Physician. cp 21:27 Heather Bloom is Primary Nurse. df1 21:50 XRAY Chest (1 view) Sent. df1 22:05 XRAY Chest (1 view) In Process Unspecified. EDMS 22:12 Liver (Hepatic) Function Sent. df1 22:12 CBC with Automated Diff Sent. df1 22:12 Basic Metabolic Panel Sent. df1 22:12 D-Dimer Sent. df1 22:12 UDS Sent. df1 22:12 Basic Metabolic Panel Sent. df1 22:12 CBC with Diff Sent. df1 22:12 LFT's Sent. df1 22:13 Magnesium Sent. df1 22:13 NT PRO-BNP Sent. df1 22:13 PT-INR Sent. df1 22:13 No provider procedures requiring assistance completed. Inserted saline lock: 20 gauge df1 in right antecubital area, using aseptic technique. 22:14 Patient has correct armband on for positive identification. Placed in gown. Bed in low df1 position. Call light in reach. Side rails up X 1. monitor tech on. Pulse ox on. NIBP on. 23:46 CT Head Brain wo Cont Sent. df1 06/22 00:18 CT Head Brain wo Cont In Process Unspecified. EDMS 01:56 IV discontinued, intact, bleeding controlled, No redness/swelling at site. Pressure df1 dressing applied. Administered Medications: 06/21 22:12 Drug: Ativan (LORazepam) 0.5 mg Route: IVP; Site: right antecubital; df1 06/22 00:48 Follow up: Response: Marked relief of symptoms df1 06/21 22:12 Drug: Aspirin Chewable Tablet 324 mg Route: PO; df1 06/22 00:48 Follow up: Response: No adverse reaction df1 06/21 22:12 Drug: NS 0.9% 1000 ml Route: IV; Rate: 1 bolus; Site: right antecubital; df1 06/22 00:47 Follow up: IV Status: Completed infusion; IV Intake: 1000ml df1 Intake: 00:47 IV: 1000ml; Total: 1000ml. df1 Outcome: 01:09 Discharge ordered by . wilmer 01:56 Discharged to home ambulatory. df1 01:56 Condition: good 01:56 Discharge instructions given to patient, Instructed on discharge instructions, follow up and referral plans. medication usage, Demonstrated understanding of instructions, follow-up care, medications, Prescriptions given X 1. 01:57 Patient left the ED. df1 Signatures: Dispatcher [employer] EDMS Jayda Caraballo RN RN Mathew Graham PA PA cp Sundriyal, Christina [facility] Antonieta Anderson Dawn df1
[2021-06-22 02:05] VITALS: O2SAT 100
[2021-06-22 02:09] VITALS: TEMP 98.4
[2021-06-22 02:10] VITALS: BP 126/87
--- NOTE | 2021-06-23 13:00 | RAD REPORT ---
EXAM DESCRIPTION: Head Brain Wo Cont 06/22/2021 12:28 AM PHARMACY COORDINATOR CLINICAL HISTORY: 36 years, Male, DIZZINESS COMPARISON: None FINDINGS: Multiple transaxial tomograms of the brain were obtained from the base of the skull to the vertex without contrast. 2-D multiplanar reformats and the coronal and sagittal plane were performed and reviewed. This exam was performed according to our departmental dose-optimization protocol, which includes auto mated exposure control, adjustment of the mA and/or kV according to patient size and/or use of iterat fredrick reconstruction technique. Brain parenchyma as well as the branch and white matter differentiation demonstrate to be unremarkable. There is no midline shift and/or mass effect. There is no evidence for acute hemorrhage. No areas of hypodensities. Lateral ventricles and cisterns displace normal appearance. No intra or extra axi al fluid collections were seen. The calvarium is intact with no evidence for fracture. The visualized portions of the paranasal sinuses and orbits demonstrate to be clear. IMPRESSION: NO ACUTE INTRACRANIAL HEMORRHAGE. UNREMARKABLE CT SCAN OF THE HEAD WITHOUT CONTRAST. Electronically signed by: Kenyon Greene MD 06/22/2021 12:28 AM PHARMACY COORDINATOR Due to temporary technical issues with the PACS/Fluency reporting system, reports are being signed by the in house radiologist without review as a courtesy to ensure prompt reporting. The interpreting r adiologist is fully responsible for the content of the report.
== END 2021-06-22 01:57 | disposition home or self-care (01) ==
LOC: ER 19:25
DX: I11.9 Hypertensive heart disease without heart failure (principal); F41.9 Anxiety disorder, unspecified; Z88.0 Allergy status to penicillin
CPT/HCPCS: 96361; 93005; 85025; 80048; 36415; 83735; 85610; 85379; 80076; 81003; 84484; 83880; 80307; 70450; 71045; 96374; 99284; J7030

== ENCOUNTER 2021-11-15 20:57 | Emergency (ER) | payer OTHER ==
--- OUTSIDE RECORDS SUMMARY | 2021-11-15 21:00 | XMS REPORT | Continuity of Care Document ---
:1985 Author Organization [facility] t Address [address] [place] [address] Care Team Providers Name Role Phone EUGENIE Primary Care Physician Unavailable GEOFFREY Attending Clinician Unavailable Geoffrey PERRY Attending Clinician Singer REECE Attending Clinician Lab, Fam Pob I Attending Clinician Unavailable Mikkine AIRLINE RADIO OPERATOR Attending Clinician AUBREY Attending Clinician Unavailable TIESHA Attending Clinician Unavailable Only, Test Attending Clinician Unavailable Tiesha PERRY Attending Clinician Doctor Unassigned, Name Attending Clinician Unavailable Pcp, Does Not Have A Attending Clinician ANUJ, A Attending Clinician Unavailable Yanelis Abraham Attending Clinician GEOFFREY Admitting Clinician Unavailable Payers Payer Name Policy Type Policy Number Effective Date Expiration Date [facility] [id number] 2019 PPO/POS 00:00:00 Problems Condition Condition Condition Status Onset Resolution Last Treating Co mments Source Name Details Category Date Date Treatment Clinician Date No known No known Disease Unive rs active active ity of problems problems [facility] Allergies, Adverse Reactions, Alerts Allergy Allergy Status Severity Reaction(s) Onset Inactive Treating Comm ents Source Name Type Date Date Clinician PENICILL DRUG Active SOB Univers IN INGREDI 7-27 ity of 00:00: [address] Penicill Propensi Active Shortness of 2020-0 Univers in ty to Breath 7-27 ity of adverse 00:00: [place] reaction [address] [place] [address] MUSHROOM DRUG Active Swelling Univer s INGREDI 4-07 ity of 00:00: [place] 00 Medical Branch Mushroom Propensi Active Swelling Throat Univ ers ty to 4-07 swelling ity of adverse 00:00: [place] reaction 00 Medical s Branch NO KNOWN Drug Active Univers ALLERGIE Class ity of S [facility] Social History Social Habit Start Date Stop Date Quantity Comments Source Exposure to Not sure [facility] SARS-CoV-2 (event) Medica l Branch Sex Assigned At [birth year] [facility] 00:00:00 00:00:00 [facility] Smoking Status Start Date Stop Date Source Unknown if ever smoked [facility] acute hospital Medications Ordered Filled Start Stop Current Ordering Indication Dosage Frequency Signature Comments Components Source Medication Medication Date Date Medication? Clinician (SIG) Name Name NaCl 0.9% 2020-07- No 1000mL at 999 Uni vers (NS) bolus 1-24 11-24 mL/hr, ity of infusion 05:00: 04:51 [...] injection 0815, STAT 125 mg predniSONE Yes [id number] 20mg Take 1 Univers 20 mg 4-07 tablet by ity of tablet 00:00: mouth [place] 00 daily. [facility] Branch predniSONE Yes [id number] 20mg Take 1 Univers 20 mg 4-07 tablet by ity of tablet 00:00: mouth [place] 00 daily. [facility] predniSONE Yes [id number] 20mg Take 1 Univers 20 mg 4-07 tablet by ity of tablet 00:00: mouth [place] 00 daily. Medical Branch EPINEPHrine 2020- No [id number] .3mg 0.3 mL by [facility] (EPIPEN) 10-30 Intramuscu ity of 0.3 mg/0.3 00:00: 04:59 lar route [place] mL 00 :00 once now Medical injection for 1 Branch dose. Vital Signs Vital Name Observation Time Observation Value Comments Source Systolic blood 2021-06-18 06:00:00 133 mm[Hg] Univer sity of [facility] Diastolic blood 2021-06-18 06:00:00 91 mm[Hg] [facility] Heart rate 2021-06-18 06:00:00 69 /min [facility] Respiratory rate 2021-06-18 06:00:00 15 /min [facility] Oxygen saturation in 2021-06-18 06:00:00 98 /min [facility] Arterial blood by [facility] Pulse oximetry [place] Body temperature 2021-06-18 03:51:00 37 Carline [facility] Body height 2021-06-18 03:51:00 177.8 cm [facility] Body weight 2021-06-18 03:51:00 99.791 kg Universi ty of [place] [facility] BMI 2021-06-18 03:51:00 31.57 kg/m2 Universi ty of [place] [facility] Systolic blood 2021-02-18 10:01:00 143 mm[Hg] Univer sity of pressure [facility] Diastolic blood 2021-02-18 10:01:00 98 mm[Hg] Unive rsity of pressure [facility] Heart rate 2021-02-18 10:01:00 67 /min Universi ty of [place] [facility] Respiratory rate 2021-02-18 10:01:00 18 /min Univ ersity of [place] [facility] Oxygen saturation in 2021-02-18 10:01:00 98 /min University of Arterial blood by [facility] Pulse oximetry Branch Body temperature 2021-02-18 07:25:00 36.5 Carline Univ ersity of [facility] Body height 2021-02-18 07:25:00 177.8 cm Universi ty of [place] [facility] [place] Body weight 2021-02-18 07:25:00 95.255 kg Universi ty of [place] [facility] BMI 2021-02-18 07:25:00 30.13 kg/m2 Universi ty of [place] [facility] Systolic blood 2020-10-30 14:10:00 140 mm[Hg] Univer sity of pressure [facility] Diastolic blood 2020-10-30 14:10:00 77 mm[Hg] Unive rsity of pressure [facility] Heart rate 2020-10-30 14:10:00 98 /min Universi ty of [place] [facility] Respiratory rate 2020-10-30 14:10:00 18 /min Univ ersity of [place] [facility] Oxygen saturation in 2020-10-30 14:10:00 98 /min University of Arterial blood by [facility] Pulse oximetry Branch Body temperature 2020-10-30 12:11:00 36.61 Carline Univ ersity of [facility] Body weight 2020-10-30 12:11:00 95.255 kg Universi ty of [facility] Procedures Procedure Date / Time Performing Clinician Source Performed TROPONIN I 2021-06-18 05:48:00 Magdi Hale o f [facility] URINE DRUG (IMMUNOASSAY) 2021-06-18 04:53:00 Magdi Hale [facility] DRUG Medical [facility] SCREEN NOTICE OF PRIVACY 2021-06-18 04:50:48 Doctor Unassigned, No Univ [facility] PRACTICES Name Medical Branch CONSENT/REFUSAL FOR 2021-06-18 04:49:09 Doctor Unassigned, No [facility] Name Medical Branch XR CHEST 1 VW 2021-06-18 04:21:41 Magdi Hale [facility] LIPASE 2021-06-18 04:02:00 Magdi Hale [facility] TROPONIN I 2021-06-18 04:02:00 Magdi Hale [facility] COMP. METABOLIC PANEL 2021-06-18 04:02:00 Magdi Hale [facility] ([id number]) Medical Branch CBC WITH DIFF 2021-06-18 04:02:00 Magdi Hale [facility] PROTHROMBIN TIME / INR 2021-06-18 04:02:00 Magdi Hale [facility] D-DIMER 2021-06-18 04:02:00 Magdi Hale [facility] ACTIVATED PARTIAL 2021-06-18 04:02:00 [facility] ALYSON [facility] N-TERMINAL PRO-BNP 2021-06-18 04:02:00 Magdi Hale [facility] URINALYSIS 2021-02-18 08:52:00 Gaudencio Day [facility] CT ABDOMEN PELVIS WO 2021-02-18 07:59:20 Gaudencio Day [facility] CONTRAST [facility] COMP. METABOLIC PANEL 2021-02-18 07:53:00 Gaudencio Day [facility] ([id number]) Medical Branch CBC WITH DIFF 2021-02-18 07:53:[address] [facility] COVID-19 (ID NOW RAPID 2021-02-18 07:52:00 Gaudencio Day [facility] TESTING) Medical Branch CONSENT/REFUSAL FOR 2021-02-18 07:21:29 Doctor Unassigned, No [facility] Name Medical Branch NOTICE OF PRIVACY 2020-10-30 12:02:54 Doctor Unassigned, No [facility] PRACTICES Name Medical Branch CONSENT/REFUSAL FOR 2020-10-30 12:02:42 Doctor Unassigned, No Un [facility] DIAGNOSIS AND TREATMENT Name Medical Branch ASSIGNMENT OF BENEFITS 2020-07-31 15:02:00 Doctor Unassigned, No [facility] Name Medical Branch Encounters Start End Encounter Admission Attending Care Care Encounter Source Date/Time Date/Time Type Type Clinicians Facility Department ID 2021-05-26 Emergency [facility] [id number] Univers 10:59:02 ity [facility] 2021-05-25 Emergency [facility] [id number] Univers 11:12:02 ity [facility] 2021-06-17 2021-06-18 Emergency [facility] [id number] Univers 21:43:00 01:00:00 MAGDI itrancho [facility] 2021-06-17 2021-06-18 Emergency [facility] [id number] Univers 21:43:00 01:00:00 Magdi SAMANIEGO [id number] i ty [facility] 4.2.7.2.686 [facility] [id number] [address] 2021-02-18 2021-02-18 Emergency [facility] [id number] Univers 02:38:00 05:10:00 Gaudencio Samaniego 350.1.13.10 i ty of [place] 4.2.7.2.686 [facility] [id number] [address] 2020-10-30 2020-10-30 [facility] [id number] Univers 07:05:00 10:02:00 Magdi Aden 350.1.13.10 i ty of [place] 4.2.7.2.686 [facility] [id number] [place] [address] Branch 2020-08-16 2020-08-16 Laboratory Lab, Adc Fam Pob I [facility] 1.2. [id number] [id number] Univers 11:18:19 11:38:19 Only Lyndsey Marley 350.1.13.10 ity of [place] 4.2.7.2.686 [place] [id number] Co dical formerly [facility] [address] 2020-08-16 2020-08-16 Outpatient R [facility] [id number] Univers 11:20:00 11:20:00 [id number] ity of [facility] 2020-08-16 2020-08-16 [facility] [id number] Univers 11:20:00 11:20:00 LYNDSEY ity of [facility] 2020-07-31 2020-07-31 Outpatient R [facility] [id number] Univers 09:30:00 09:30:00 [id number] ity of [facility] 2020-07-31 2020-07-31 [facility] [id number] Univers 09:30:00 09:30:00 LUNA robersonrancho [facility] 2020-07-31 2020-07-31 Laboratory Only, Adc Test [facility] 1.2.840. [id number] Univers 08:58:06 09:13:06 Only Luna Mahan 350.1.13.10 ity of [place] 4[place]7.2.[place] [id number] [facility] [address] 2020-07-31 2020-07-31 Orders Doctor DEMARCO [id number] Univers 00:00:00 00:00:00 Only Unassigned, JOB 350.1.13.10 ity of [place] [facility] 4.2.7.2.686 [place] as [id number] [facility] [address] 2020-04-19 2020-04-19 Telephone Pcp, DEMARCO [id number] Univers 00:00:00 00:00:00 Patient JOB 350.1.13.10 it y of Does Not HOSPITAL [place].2.[place] A [id number] [facility] [address] 2020-04-18 2020-04-18 Outpatient R [facility] [id number] Univers 09:00:00 09:00:00 [id number] ity of [facility] 2020-04-18 2020-04-18 Outpatient [facility] [id number] Univers 09:00:00 09:00:00 LYNDSEY itrancho [facility] 2020-04-18 2020-04-18 Laboratory Lab, [facility] 1.2. [id number] [id number] Univers 08:06:23 08:26:23 Only Lyndsey [facility] 350.1.13.10 ity of [place] 4.2.7.2.686 [place] as Professio [id number] [address] Office [facility] 2020-03-06 2020-03-06 Outpatient [facility] [id number] Univers 14:00:00 14:00:00 VIKTORIYA frazier [facility] 2020-03-06 2020-03-06 Laboratory Lab, [facility] Fam Pob [facility] 1.2. 840.114 [id number] Univers 13:44:04 13:58:31 Only Viktoriya [facility] 350.1.13.10 ity of [place] 4.2.7.2.686 [place] Professio [id number] [address] Office [facility] 2020-03-06 2020-03-06 Letter Doctor DEMARCO 1.2.840.114 [id number] Univers 00:00:00 00:00:00 (Out) Unassigned, JOB 350.1.13.10 ity of [place] [facility] 4.2.7.2.686 [place] [id number] [address] Results Test Description Test Time Test Comments Results Result Comments Source TROPONIN I 2021-06-18 06:28:00 Test Item Value Reference Range Interpretation Comme nts TROPONIN I (test code = 0.004 ng/mL See_Comment [Au tomated message] The 0948762142) system which ge nerated this result tra [...] biotin. Lab Interpretation Normal (test code = 04078-5) [id number] 05:02:48 Test Item Value Reference Interpretation Comments Range D-DIMER (test code = <0.27 See_Comment [Autom ated 2480485194) message] The system which generated this result [...] diagnosis. Lab Interpretation Normal (test code = 37611-3) [facility] [id number] 04:35:43 Test Item Value Reference Interpretation Comments Range TROPONIN I (test 0.002 ng/mL See_Comment [Automated code = 8894956498) message] The system which generated this result [...] biotin. Lab Interpretation Normal (test code = 81272-8) [facility]AL [id number] 04:32:40 Test Item Value Reference Range Interpretation Comments NT-proBNP (test code 23 pg/mL See_Comment [Autom ated = 3238287421) message] The system which generated this result transmitted reference range : <=125. The reference range was not used to interpret this result as normal/abnormal . FLAVIO (test code = FLAVIO) Biotin has been reported to cause a negative bias, interpret results relative to patient's use of biotin. Lab Interpretation Normal (test code = 80897-8) [facility]IAL THRMPLAS [id number] 04:27:23 Test Item Value Reference Range Interpretation Comments APTT Patient (test See_Comment [Automat ed code = 3173-2) message] The system which generated this result transmitted reference range : 23 - 38 Seconds . The reference range was not used to interpr et this result as normal/abnormal . FLAVIO (test code = FLAVIO) The [facility] patient population mean normal value for aPTT is 30 seconds. Lab Interpretation Normal (test code = 76631-7) [facility] CenterPROT[facility] TIME / [id number] 04:25:21 Test Item Value Reference Range Interpretation [...] tions. Lab Interpretation (test Normal code = 83750-5) [facility] METABOLIC PANEL ([id number])2021-06-18 04:25:01 Test Item Value Reference Range Interpretation Comments NA (test code = 138 mmol/L 135-145 6974378276) K (test code = 3.5 mmol/L 3.5-5.0 1736915229) CL (test code = 103 mmol/L 98-108 0757243168) CO2 TOTAL (test code = 26 mmol/L 23-31 3959575763) AGAP (test code = 2-16 5797575410) BUN (test code = 16 mg/dL 7-23 4308382637) GLUCOSE (test code = 130 mg/dL 70-110 H 8023316824) CREATININE (test code = 1.21 mg/dL 0.60-1.25 5251104066) TOTAL BILI (test code = 0.4 mg/dL 0.1-1.4 1248732482) CALCIUM (test code = 8.9 mg/dL 8.6-10.6 6104790930) T PROTEIN (test code = 7.2 g/dL 6.3-8.2 8111677754) ALBUMIN (test code = 4.2 g/dL 3.5-5.0 0063166303) ALK PHOS (test code = 97 U/L 34-122 4123776125) ALTv (test code = 48 U/L 5-50 1742-6) AST(SGOT) (test code = 44 U/L 13-40 H 8426015059) eGFR (test code = mL/min/1.73m2 8337220073) FLAVIO (test code = FLAVIO) Association of [...] tests). Lab Interpretation Abnormal (test code = 81779-5) [facility] Center[facility]2021-11-24 04:24:41 Test Item Value Reference Range Interpretation Comments LIPASE (test code = 7409493391) 85 U/L 0-220 Lab Interpretation (test code = Normal 99946-7) [facility] WITH [id number] 04:11:22 Test Item Value Reference Range Interpretation Comments WBC (test code = See_Comment H [Automated 2190-2) message] The sy stem which generated this result transmitted reference range : 4.20 - 10.70 10*3/?L. The reference range was not used to interpret this result as normal/abnormal . RBC (test code = See_Comment [Automated 490-8) message] The sy stem which generated this [...] RDW-SD (test code = 40.5 fL 38.5-51.6 96065-7) RDW-CV (test code = 12.8 % 12.1-15.4 788-0) PLT (test code = See_Comment [Automated 777-3) message] The sy stem which generated this result transmitted reference range : 150 - 328 10*3/ ?L. The reference r ray was not used to interpret this result as normal/abnormal . MPV (test code = 10.0 fL 9.8-13.0 81292-7) NRBC/100 WBC (test See_Comment [Automat ed code = 6196722034) message] The system which generated this result transmitted reference range : 0.0 - 10.0 /100 WBCs. The refer ence range was not u sed to interpret th is result as normal/abnormal . NRBC x10^3 (test code <0.01 See_Comment [Auto mated = 0124256738) message] The s ystem which generated this result transmitted reference range : 10*3/?L. The reference range was not used to interpret this result as normal/abnormal . GRAN MAT (NEUT) % 51.3 % (test code = 770-8) IMM GRAN % (test code 0.50 % = 1232786931) LYMPH % (test code = 34.9 % 736-9) MONO % (test code = 11.2 % 5905-5) EOS % (test code = 1.3 % 713-8) BASO % (test code = 0.8 % 706-2) GRAN MAT x10^3(ANC) 5.70 10*3/uL 1.99-6.95 (test code = 5357844241) IMM GRAN x10^3 (test 0.06 10*3/uL 0.00-0.06 code = 5697685820) LYMPH x10^3 (test code 3.88 10*3/uL 1.09-3.23 H = 731-0) MONO x10^3 (test code 1.25 10*3/uL 0.36-1.02 H = 742-7) EOS x10^3 (test code = 0.14 10*3/uL 0.06-0.53 711-2) BASO x10^3 (test code 0.09 10*3/uL 0.01-0.09 = 704-7) Lab Interpretation Abnormal (test code = 48977-0) [facility]IS2021-07-27 09:11:53 Test Item Value Reference Range Interpretation Comments APPEARANCE (test code Clear Clear = 2473574733) COLOR (test code = Yellow Yellow 6381628927) PH (test code = 4.8-8.0 6773355191) SP GRAVITY (test code 1.003-1.030 = 1485519151) GLU U QUAL (test code Normal Normal = 1791777814) BLOOD (test code = Negative Negative 7259416248) KETONES (test code = Negative Negative 3736022571) PROTEIN (test code = Negative Negative 2887-8) UROBILIN (test code = Normal Normal 4726666578) BILIRUBIN (test code = Negative Negative 0547171436) NITRITE (test code = Negative Negative 3759348575) LEUK BEHZAD (test code Negative Negative = 3810627093) RBC/HPF (test code = See_Comment [Autom ated message] 7864374586) The system SinDelantal generated this result transmitted ref erence range: 0 - 3 HP F. The reference range was not used to interpr et this result as normal/abnormal . WBC/HPF (test code = <1 See_Comment [Autom ated message] 5720295577) The system SinDelantal generated this result transmitted ref erence range: 0 - 5 HP F. The reference range was not used to interpr et this result as normal/abnormal . BACTERIA (test code = Negative Negative 2858586643) SQ EPITH (test code = <1 HPF 7933496990) [facility]OVID[facility] (ID NOW RAPID TESTING)2021-02-18 08:38:11 Test Item Value Reference Range Interpretation Comments SARS-CoV-2 Rapid ID NOW Not Detected Not Detected (test code = 47094-4) FLAVIO (test code = FLAVIO) ID NOW COVID-19 Assay is an isothermal nucleic acid amplification test intended for the qualitative detection of nucleic acid from SARS-CoV-2 viral RNA in nasopharyngeal (APPRAISER PERSONAL PROPERTY) specimens. It is used under Emergency Use [...] indicated. Lab Interpretation Normal (test code = 47703-8) [facility]. METABOLIC PANEL ([id number])2021-02-18 08:37:51 Test Item Value Reference Range Interpretation Comments NA (test code = 140 mmol/L 135-145 0167067340) K (test code = 3.5 mmol/L 3.5-5.0 4645321775) CL (test code = 105 mmol/L 98-108 6806631121) CO2 TOTAL (test code = 25 mmol/L 23-31 3891009506) AGAP (test code = 2-16 6542831009) BUN (test code = 14 mg/dL 7-23 3459134702) GLUCOSE (test code = 120 mg/dL 70-110 H 3948362674) CREATININE (test code = 1.05 mg/dL 0.60-1.25 5720368718) TOTAL BILI (test code = 0.6 mg/dL 0.1-1.9 9181194519) CALCIUM (test code = 9.3 mg/dL 8.6-10.6 6431393231) T PROTEIN (test code = 7.8 g/dL 6.3-8.2 2072481737) ALBUMIN (test code = 4.6 g/dL 3.5-5.0 6432764824) ALK PHOS (test code = 95 U/L 34-122 2946750046) ALTv (test code = 51 U/L 5-50 H 1742-6) AST(SGOT) (test code = 41 U/L 13-40 H 3663626953) eGFR (test code = mL/min/1.73m2 2643434591) FLAVIO (test code = FLAVIO) Association of [...] tests). Lab Interpretation Abnormal (test code = 73493-9) [facility] WITH [id number] 08:24:25 Test Item Value Reference Range Interpretation Comments WBC (test code = See_Comment [Automated 2095-2) message] The sy stem which generated this result transmitted reference range : 4.20 - 10.70 10*3/?L. The reference range was not used to interpret this result as normal/abnormal . RBC (test code = See_Comment [Automated 200-8) message] The sy stem which generated this [...] RDW-SD (test code = 40.8 fL 38.5-51.6 75575-7) RDW-CV (test code = 13.0 % 12.1-15.4 788-0) PLT (test code = See_Comment H [Automated 777-3) message] The sy stem which generated this result transmitted reference range : 150 - 328 10*3/ ?L. The reference r ray was not used to interpret this result as normal/abnormal . MPV (test code = 10.3 fL 9.8-13.0 79833-7) NRBC/100 WBC (test See_Comment [Automat ed code = 8836520843) message] The system which generated this result transmitted reference range : 0.0 - 10.0 /100 WBCs. The refer ence range was not u sed to interpret th is result as normal/abnormal . NRBC x10^3 (test code <0.01 See_Comment [Auto mated = 7521961247) message] The s ystem which generated this result transmitted reference range : 10*3/?L. The reference range was not used to interpret this result as normal/abnormal . GRAN MAT (NEUT) % 44.2 % (test code = 770-8) IMM GRAN % (test code 0.60 % = 9095675394) LYMPH % (test code = 39.6 % 736-9) MONO % (test code = 12.6 % 5905-5) EOS % (test code = 2.1 % 713-8) BASO % (test code = 0.9 % 706-2) GRAN MAT x10^3(ANC) 4.33 10*3/uL 1.99-6.95 (test code = 4533095650) IMM GRAN x10^3 (test 0.06 10*3/uL 0.00-0.06 code = 3393544969) LYMPH x10^3 (test code 3.89 10*3/uL 1.09-3.23 H = 731-0) MONO x10^3 (test code 1.24 10*3/uL 0.36-1.02 H = 742-7) EOS x10^3 (test code = 0.21 10*3/uL 0.06-0.53 711-2) BASO x10^3 (test code 0.09 10*3/uL 0.01-0.09 = 704-7) Lab Interpretation Abnormal (test code = 84855-1) [facility]
[2021-11-15] MEDS ORDERED: MECLIZINE HCL 12.5 MG TAB ONE (21:34)
[2021-11-15] MEDS ORDERED: ONDANSETRON 4 MG (ODT) TAB ONE (21:34)
--- NOTE | 2021-11-15 21:47 | RAD REPORT ---
EXAM DESCRIPTION: CT - Head Brain Wo Cont - 11/15/2021 9:41 pm CLINICAL HISTORY: Vertigo, central Headache, drowsiness COMPARISON: Head Brain Wo Cont dated 06/21/2021 TECHNIQUE: All CT scans are performed using dose optimization technique as appropriate and may inclu de automated exposure control or mA/KV adjustment according to patient size. FINDINGS: No intracranial hemorrhage, hydrocephalus or extra-axial fluid collection.No areas of brai n edema or evidence of midline shift. The paranasal sinuses and mastoids are clear. The calvarium is intact. IMPRESSION: No acute intracranial abnormality.
[2021-11-15 23:14] LABS: Absolute Lymphocytes (CBC) 1.6 K/uL (0.7-4.9); Hematocrit 42.3 % (39.6-49.0); Lymphocytes % 13.3 % (15.3-44.8); MPV 8.3 fL (7.6-11.3); RBC Red Blood Cell Count 4.78 M/uL (4.33-5.43)
[2021-11-15 23:17] LABS: Protime INR 1.04
[2021-11-15 23:33] LABS: Bilirubin Direct 0.1 mg/dL (0-0.2); Bilirubin Total 0.3 mg/dL (0.2-1.0); Magnesium 2.5 mg/dL (1.8-2.4); Potassium 3.9 mmol/L (3.5-5.1); Protein, Total 7.7 g/dL (6.4-8.2); Troponin High Sensitivity 6.6 pg/mL (<58.9)
--- NOTE | 2021-11-15 23:48 | ER ---
Nurse's Notes [facility] Name: Mak Rogers Age: 36 yrs Sex: Male : 1985 Arrival Date: 11/15/2021 Time: 20:57 Bed 15 Private MD: Diagnosis: Vertigo Presentation: 11/15 21:24 Chief complaint: Patient states: been feeling dizzy and vomiting since yesterday. sm5 states he feels like he is going to pass out. Coronavirus screen: Vaccine status: Patient reports being unvaccinated. Ebola Screen: No symptoms or risks identified at this time. Initial Sepsis Screen: Does the patient meet any 2 criteria? HR > 90 bpm. No. Patient's initial sepsis screen is negative. Does the patient have a suspected source of infection? No. Patient's initial sepsis screen is negative. Risk Assessment: Do you want to hurt yourself or someone else? Patient reports no desire to harm self or others. Onset of symptoms was November 15, 2021. 21:24 Method Of Arrival: Wheelchair [facility] 21:24 Acuity: CAMERON 3 5 Triage Assessment: 21:28 General: Appears in no apparent distress. Behavior is appropriate for age. Pain: Denies sm5 pain. Neuro: No deficits noted. Level of Consciousness is awake, alert, obeys commands, Oriented to person, place, time, situation, Reports dizziness. GI: Reports vomiting. Historical: - Allergies: 21:27 PENICILLINS; 5 - Home Meds: 21:27 metoprolol tartrate 50 mg Oral tab 1 tab 2 times per day [Active]; 5 21:27 Lisinopril Oral [Active]; sm5 - PMHx: 21:27 Hypertension; sm5 - PSHx: 21:27 Appendectomy; sm5 - Immunization history:: Client reports having NOT received the Covid vaccine. - Social history:: Smoking status: Patient denies any tobacco usage or history of. Screenin/24 01:25 Abuse screen: Denies threats or abuse. Nutritional screening: No deficits noted. ll3 Tuberculosis screening: No symptoms or risk factors identified. Fall Risk None identified. Assessment: 11/15 23:11 General: Appears comfortable, Behavior is calm, cooperative. Pain: Denies pain. Neuro: ll3 Level of Consciousness is awake, alert, obeys commands, Oriented to person, place, time, situation, Reports dizziness. Cardiovascular: Patient's skin is warm and dry. Rhythm is sinus rhythm. Respiratory: Respiratory effort is even, unlabored, Respiratory pattern is regular, symmetrical. GI: Reports nausea, vomiting. Derm: Skin is pink, warm \T\ dry. 11/16 00:26 Reassessment: Pt has fluids infusing, pt will be discharged upon medication ll3 administration compleation. Vital Signs: 11/15 21:24 BP 153 / 92; Pulse 102; Resp 18; Temp 98.2(TE); Pulse Ox 100% on R/A; Weight 92.53 kg; [facility] Height 5 ft. 9 in. (175.26 cm); 23:11 BP 138 / 73; Pulse 86; Resp 17; Pulse Ox 100% on R/A; ll3 11/16 00:28 BP 113 / 75; Pulse 77; Resp 16; Pulse Ox 99% on R/A; ll3 11/15 21:24 Body Mass Index 30.13 (92.53 kg, 175.26 cm) [facility] ED Course: 11/15 20:57 Patient arrived in ED. rg4 21:27 Triage completed. [facility] 21:27 Nathan Morgan PA is PHCP. [facility] 21:27 Jaison Abraham MD is Attending Physician. [facility] 21:28 Arm band placed on right wrist. 5 21:42 CT Head Brain wo Cont In Process Unspecified. EDMS 22:44 XRAY Chest (1 view) In Process Unspecified. EDMS 23:10 Tenisha Vaca, ARLINE is Primary Nurse. 3 23:10 Initial lab(s) drawn, by pa, sent to lab. EKG done, by ED staff, reviewed by Nathan DYER. Inserted saline lock: 22 gauge in right antecubital area, using aseptic technique. Blood collected. 23:47 Yumiko Garcia MD is Referral Physician. [facility] 11/16 01:26 No provider procedures requiring assistance completed. IV discontinued, intact, ll3 bleeding controlled, No redness/swelling at site. Pressure dressing applied. 01:27 Patient has correct armband on for positive identification. Pulse ox on. NIBP on. ll3 Administered Medications: 11/15 21:34 Drug: Meclizine 50 mg Route: PO; 5 23:10 Follow up: Response: No adverse reaction; Marked relief of symptoms 3 21:34 Drug: Zofran (Ondansetron) 4 mg Route: PO; 5 23:10 Follow up: Response: No adverse reaction; Marked relief of symptoms 3 11/16 00:11 Drug: NS 0.9% 1000 ml Route: IV; Rate: 1 bolus; Site: right antecubital; 3 01:28 Follow up: IV Status: Completed infusion; IV Intake: 1000ml 3 Point of Care Testing: Blood Glucose: 11/15 21:28 Blood Glucose: 145 mg/dL; sm5 Ranges: Intake: 11/16 01:28 IV: 1000ml; Total: 1000ml. 3 Outcome: 11/15 23:48 Discharge ordered by MD. gaytan 11/16 01:27 Discharged to home ambulatory. 3 Condition: good Discharge instructions given to patient, Instructed on discharge instructions, follow up and referral plans. medication usage, Demonstrated understanding of instructions, follow-up care, medications, Prescriptions given X 4. 01:28 Patient left the ED. 3 Signatures: Dispatcher [employer] EDMS Nathan Morgan PA PA jmm Garcia, Rubi rg4 Tenisha Vaca RN RN 3 Jada Santo RN RN 5
--- NOTE | 2021-11-15 23:48 | EDPHYS ---
Physician Documentation [facility] Name: Mak Rogers Age: 36 yrs Sex: Male : 1985 Arrival Date: 11/15/2021 Time: 20:57 Bed 15 Private MD: ED Physician Jaison Abraham HPI: 11/15 21:29 This 36 yrs old Male presents to ER via Wheelchair with complaints of Dizziness. jmm 21:29 The patient presents with dizziness, sense of spinning. Onset: The symptoms/episode jmm began/occurred acutely, today. Modifying factors: The symptoms are alleviated by nothing, the symptoms are aggravated by movement of head, changing position. Associated signs and symptoms: Pertinent positives: vomiting. Is a 36-year-old male with history of hypertension the presents emerged department with complaints of acute onset dizziness along with nausea. Patient states approximately 2 weeks ago he developed cough, congestion, left ear fullness worse in the evenings. Patient has been nauseous since but today developed sensation that he was about to pass out along with difficulty getting his bearings. Denies chest pain or shortness of breath.. Historical: - Allergies: 21:27 PENICILLINS; sm5 - Home Meds: 21:27 metoprolol tartrate 50 mg Oral tab 1 tab 2 times per day [Active]; sm5 21:27 Lisinopril Oral [Active]; sm5 - PMHx: 21:27 Hypertension; sm5 - PSHx: 21:27 Appendectomy; sm5 - Immunization history:: Client reports having NOT received the Covid vaccine. - Social history:: Smoking status: Patient denies any tobacco usage or history of. ROS: 21:29 Cardiovascular: Negative for chest pain, palpitations, and edema, Respiratory: Negative jmm for shortness of breath, cough, wheezing, and pleuritic chest pain. 21:29 Constitutional: Positive for fatigue. 21:29 ENT: Positive for ear pain. 21:29 Neuro: Positive for dizziness, near syncope. 21:29 All other systems are negative. Exam: 21:29 Constitutional: This is a well developed, well nourished patient who is awake, alert, jmm and in no acute distress. Head/Face: atraumatic. Eyes: EOMI, no conjunctival erythema appreciated 21:29 Neck: Trachea midline, Supple Chest/axilla: Normal chest wall appearance and motion. Cardiovascular: Regular rate and rhythm. No edema appreciated Respiratory: Normal respirations, no respiratory distress appreciated Abdomen/GI: Non distended, soft Back: Normal ROM Skin: General appearance color normal MS/ Extremity: Moves all extremities, no obvious deformities appreciated, no edema noted to the lower extremities Neuro: Awake and alert Psych: Behavior is normal, Mood is normal, Patient is cooperative and pleasant 21:29 Eyes: Extraocular movements: intact throughout, Nystagmus: nystagmus with fast component noted, bilaterally. 21:29 ENT: TM's: dullness, on the left, erythema, that is moderate. Vital Signs: 21:24 BP 153 / 92; Pulse 102; Resp 18; Temp 98.2(TE); Pulse Ox 100% on R/A; Weight 92.53 kg; [facility] Height 5 ft. 9 in. (175.26 cm); 23:11 BP 138 / 73; Pulse 86; Resp 17; Pulse Ox 100% on R/A; ll3 11/16 00:28 BP 113 / 75; Pulse 77; Resp 16; Pulse Ox 99% on R/A; ll3 11/15 21:24 Body Mass Index 30.13 (92.53 kg, 175.26 cm) [facility] MDM: 11/15 21:35 Patient medically screened. kim 23:47 Data reviewed: vital signs, nurses notes. Counseling: I had a detailed discussion with lukas the patient and/or guardian regarding: the historical points, exam findings, and any diagnostic results supporting the discharge/admit diagnosis, lab results, radiology results, the need for outpatient follow up, to return to the emergency department if symptoms worsen or persist or if there are any questions or concerns that arise at home. ED course: Symptoms are alleviated in the ED. No nystagmus on reevaluation. Patient has normal zjjriz-[id number] and ohdl-ic-dtik. Patient states feeling much better. I suspect the patient most likely has labyrinthitis. Will treat with a course of steroids. Patient advised follow with ENT and otherwise given strict return precautions. Patient understood and agrees plan of care.. 11/15 21:15 Order name: Glucose, Ancillary Testing; Complete Time: 21:48 EDMS 11/15 21:29 Order name: Basic Metabolic Panel; Complete Time: 23:37 [facility] 11/15 21:29 Order name: CBC with Diff; Complete Time: 23:24 [facility] 11/15 21:29 Order name: LFT's; Complete Time: 23:37 [facility] 11/15 21:29 Order name: Magnesium; Complete Time: 23:37 [facility] 11/15 21:29 Order name: NT PRO-BNP; Complete Time: 23:37 [facility] 11/15 21:29 Order name: PT-INR; Complete Time: 23:24 [facility] 11/15 21:29 Order name: Troponin HS; Complete Time: 23:37 [facility] 11/15 21:29 Order name: XRAY Chest (1 view) [facility] 11/15 21:29 Order name: EKG; Complete Time: 21:30 [facility] 11/15 21:30 Order name: CT Head Brain wo Cont; Complete Time: 21:50 [facility] 11/15 21:29 Order name: Cardiac monitoring; Complete Time: 23:10 [facility] 11/15 21:29 Order name: EKG - Nurse/Tech; Complete Time: 23:10 [facility] 11/15 21:29 Order name: IV Saline Lock; Complete Time: 23:10 [facility] 11/15 21:29 Order name: Labs collected and sent; Complete Time: 23:10 [facility] 11/15 21:29 Order name: O2 Per Protocol; Complete Time: 23:10 [facility] 11/15 21:29 Order name: O2 Sat Monitoring; Complete Time: 23:10 [facility] Administered Medications: 21:34 Drug: Meclizine 50 mg Route: PO; 5 23:10 Follow up: Response: No adverse reaction; Marked relief of symptoms 3 21:34 Drug: Zofran (Ondansetron) 4 mg Route: PO; 5 23:10 Follow up: Response: No adverse reaction; Marked relief of symptoms 3 11/16 00:11 Drug: NS 0.9% 1000 ml Route: IV; Rate: 1 bolus; Site: right antecubital; 3 01:28 Follow up: IV Status: Completed infusion; IV Intake: 1000ml 3 Point of Care Testing: Blood Glucose: 11/15 21:28 Blood Glucose: 145 mg/dL; 5 Ranges: Critical Glucose Levels:Adult <50 mg/dl or >400 mg/dl <40 mg/dl or >180 mg/dl Disposition: 11/16 19:52 Co-signature as Attending Physician, Jaison Abraham MD I agree with the assessment and kdr plan of care. Disposition Summary: 11/15/21 23:48 Discharge Ordered Location: Home [facility] Condition: Stable [facility] Diagnosis - Vertigo [facility] Followup: [facility] - With: Yumiko Garcia MD - When: 2 - 3 days - Reason: Recheck today's complaints, Continuance of care, Re-evaluation by your physician Discharge Instructions: - Discharge Summary Sheet [facility] - Vertigo [facility] - How to Perform the Zenobia Maneuver [facility] Forms: - Medication Reconciliation Form [facility] - Thank You Letter [facility] - Antibiotic Education [facility] - Prescription Opioid Use [facility] Prescriptions: - cefdinir 300 mg Oral capsule - take 1 capsule by ORAL route every 12 hours for 10 days; 20 capsule; Refills: [facility] 0, Product Selection Permitted - ondansetron 4 mg Oral tablet,disintegrating - take 1 tablet by ORAL route every 4-6 hours; 20 tablet; Refills: 0, Product [facility] Selection Permitted - Meclizine 25 mg Oral Tablet - take 1 tablet by ORAL route every 8 hours As needed; 30 tablet; Refills: 0, [facility] Product Selection Permitted - Prednisone 20 mg Oral Tablet - take 3 tablets by ORAL route once daily for 5 days; 15 tablet; Refills: 0, [facility] Product Selection Permitted Signatures: Dispatcher [employer] EDJaison Varela MD MD kdr Mickail, Joel, PA PA [facility] Tenisha Vaca, RN RN ll3 Jada Santo RN RN sm5
[2021-11-16] MEDS ORDERED: NA CHLORIDE 0.9% 1,000 ML ONE (00:11)
[2021-11-16 01:32] VITALS: TEMP 98.2
[2021-11-16 01:34] VITALS: BP 113/75; O2SAT 99
--- NOTE | 2021-11-16 18:21 | RAD REPORT ---
EXAM DESCRIPTION: RAD - Chest Single View - 11/15/2021 10:42 pm CHEST, ONE VIEW XR CLINICAL HISTORY: Syncope. COMPARISON: None. TECHNIQUE: AP Chest. FINDINGS: Normal cardiac size. Pulmonary vasculature appears normal. Normal cardiomediastinal contou rs. Lungs are clear. Pleural spaces are clear. No pneumothorax. Unremarkable soft tissues and bones. IMPRESSION: 1. Unremarkable chest. Electronically signed by: Lyn Lee DO 11/15/2021 11:30 PM CDT Due to temporary technical issues with the PACS/Fluency reporting system, reports are being signed by the in house radiologists without review as a courtesy to insure prompt reporting. The interpreting radiologist is fully responsible for the content of the report.
== END 2021-11-16 01:28 | disposition home or self-care (01) ==
LOC: ER 20:57
DX: R42 Dizziness and giddiness (principal); R11.0 Nausea; R53.83 Other fatigue; I10 Essential (primary) hypertension; Z88.0 Allergy status to penicillin
CPT/HCPCS: 93005; 85025; 80048; 36415; 83735; 85610; 82947; 80076; 84484; 83880; 70450; 71045; 96360; 99285; J8597; J7030